=== PATIENT | female | born 1975 | race African-American/Black ===

== ENCOUNTER 2019-08-30 13:37 | Outpatient (CLI) | payer BC, SELFPAY ==
[2019-08-30 14:06] LABS: Hematocrit 35.7 % (37.0-47.0); Hemoglobin 10.6 g/dL (12.0-15.0)
== END 2019-08-30 13:38 | disposition home or self-care (01) ==
PROVIDERS: Anesthesiology; Visit Provider Obstetrics & Gynecology
DX: Z01.818 Encounter for other preprocedural examination (principal); N92.0 Excessive and frequent menstruation with regular cycle; D64.9 Anemia, unspecified
CPT/HCPCS: 36415; 85014; 85018; 86850; 86900; 86901

== ENCOUNTER 2019-09-01 14:29 | Outpatient (CLI) | payer BC, SELFPAY ==
--- NOTE | ~2019-09-01 | US_ITS ---
EXAMINATION: US pelvic complete w TV DATE: 09/01/2019 15:40 INDICATION: Uterine hypertrophy Comparison:No prior studies for comparison. TECHNIQUE: Multiple transabdominal and endovaginal sonographic images of the pelvis performed. FINDINGS: The uterus measures 11.9 x 6 x 6.1 cm. There are coarse calcifications in the uterus, likel y related to underlying fibroid changes. The endometrial complex measures 6 mm. The right ovary measures 3.9 x 1.6 x 1.7 cm and the left ovary measures 2.2 x 1.4 x 2.4 cm. There ar e small follicles in each ovary. There is no free fluid in the pelvis. There are no abnormal masses seen on either side. IMPRESSION: 1. Enlarged uterus containing coarse calcifications likely due to underlying fibroid changes. Reviewed, dictated and finalized at location A. [employer] [employer]DER IMPRESSION: 1. Enlarged uterus containing coarse calcifications likely due to underlying fi broid changes.
== END 2019-09-01 14:30 | disposition home or self-care (01) ==
PROVIDERS: Visit Provider Obstetrics & Gynecology
DX: N85.2 Hypertrophy of uterus (principal); R93.89 Abnormal findings on diagnostic imaging of other specified body structures
CPT/HCPCS: 76830; 76856

== ENCOUNTER 2019-09-07 01:16 | Day surgery (SDC) | payer BC, SELFPAY ==
[2019-08-25 14:59] VITALS: BMI 32.1
--- NOTE | 2019-09-06 13:44 | WPDANESEPPF ---
Anes - Initial Pre Proc Eval Procedure: Operation Date: 09/07/19 07:30 Proposed Procedures p Robotic Assisted Hysterectomy, Bilateral Salpingectomy - Jung Pa MD Date/Time: 09/06/19 13:44 Surgeon: Jung Pa MD Pre Op Diagnosis: Menorrhaghia, Anemia Patient Data Age: 44 Gender: F Height: 5 ft 1 in Weight: 77.11 kg Allergies Allergy/AdvReac Type Severity Reaction Status Date / Time peanut Allergy Unknown throat Verified 08/30/19 14:27 swelling, difficulty breathing Home Medications Medication Instructions Recorded Confirmed Type levothyroxine 150 mcg tablet 150 mcg PO DAILY 07/12/19 08/25/19 History ferrous sulfate [Slow Fe] 142 mg PO DAILY 08/25/19 08/25/19 History Patient hx anesthesia problems: none Family hx anesthesia problems: none PMFSH Social History Social History Smoking status: Light tobacco smoker Alcohol intake: current Anes - Eval Final PreProcedure Day of Procedure 09/06/19 13:44 Patient weight: normal Heart: regular rate and rhythm Lungs: clear to auscultation Airway: Mallampati scale class II Neurological: alert and oriented Last oral intake: >/= 8 hours ASA classification: II Emergent: no Anesthetic plan: proceed Anesthesia type and monitoring: general ETT and standard monitoring Informed Consent: The patient's anesthetic plan and its attendant risks and benefits were discussed with the patient/family/POA. Questions were solicited and answers provided to the satisfaction of the patient/family/POA.
[2019-09-07] VITALS (19 sets, daily range): BP systolic 101–128; BP diastolic 64–90; PULSE 80–109; RESP 12–18; TEMP 36.4–37.6; O2SAT 93–100
[2019-09-07] MEDS: LACTATED RINGERS 1,000 ML 30 ML IV CONT ×2 (06:45→11:11)
--- NOTE | 2019-09-07 07:49 | PM.IMHP ---
H&P: HPI History of Present Illness Chief complaint: Menorrhaghia, Anemia Narrative: Keisha Yap is a 44 year old female with long history of menorrhagia. She has a history of fibroids. She has had a prior uterine artery embolization. Prior to the embolization she was tried on many hormonal control which did not help her heavy bleeding. She had a subsequent delivery. Since then she has had heavy periods not to hormonal options in past. She has had a history of severe anemia which required a blood transfusion over a year ago. She has had iron injection and has been taking iron therapy. She does get moderate cramping for two days at onset of period. She has been offered progesterone IUD and offered endometrial ablation. She declines those and desires definitive treatment with hysterectomy. She has had a recent endometrial biopsy which was normal. Review of Systems Review of Systems: All systems reviewed & are unremarkable except as noted in HPI and below Constitutional: Constitutional: Reports no additional constitutional complaints Eyes: Eyes: Reports no additional eye complaints ENT: Reports Normal hearing present Cardiovascular: Cardiovascular: Denies chest pain and Denies dyspnea Respiratory: Respiratory: Reports no additional respiratory complaints, Reports cough, Denies dyspnea and Reports other Gastrointestinal: Gastrointestinal: Denies abdominal pain Genitourinary: Genitourinary: Reports no additional female genitourinary complaints, Reports as per HPI, Denies dyspareunia, Denies vaginal discharge, Denies vaginal dryness, Denies vaginal odor and Denies vaginal pruritus Integumentary/Breasts: Skin/Breast: Denies breast mass and Denies nipple discharge Neurologic: Reports Normal hearing present Psychiatric: Psychiatric: Reports no additional psychiatric complaints Endocrine: Endocrine: Reports no additional endocrine complaints Hematologic/Lymphatic: Hematologic/Lymphatic: Reports no additional hematologic/lymphatic complaints [facility] Past Medical History Medical History (Updated 09/07/19 @ 23:53 by Jung Pa MD) Anemia Anxiety Dysmenorrhea Intramural uterine fibroid Menorrhagia Menorrhagia Thyroid cancer Surgical History Surgical History H/O dilation and curettage H/O thyroidectomy History of History of tubal ligation Status post embolization of uterine artery Family History Family History Other Hypertension Social History Social History Smoking status: Light tobacco smoker Alcohol intake: current Meds Home Medications and Allergies Home Medications Medication Instructions Recorded Confirmed Type levothyroxine 150 mcg tablet 150 mcg PO DAILY 07/12/19 09/07/19 History ferrous sulfate [Slow Fe] 142 mg PO DAILY 08/25/19 09/07/19 History Allergies Allergy/AdvReac Type Severity Reaction Status Date / Time peanut Allergy Unknown throat Verified 09/07/19 07:07 swelling, difficulty breathing Vital Signs Vital Signs - 24 hr 09/07/19 06:27 Temperature 97.5 F L Pulse Rate 104 H Respiratory Rate 18 Blood Pressure 122/86 Pulse Oximetry 100 Exam Const: General: healthy appearing, no acute distress, alert and awake Nutritional Appearance: well nourished Orientation/consciousness: oriented to person, oriented to place, oriented to time and patient oriented x3 Limitations: no limitations HENMT: Head: normal to inspection Ears: hearing grossly normal bilaterally Mouth: Yes lip normal Eyes: General: appearance normal, both eyes and all related structures Neck: Neck: normal visual inspection, no lymphadenopathy and supple Thyroid: thyroid normal Lymphatic: no lymphadenopathy noted Chest: Chest palpation & inspection: normal inspection of the chest Breast/axilla
[2019-09-07] MEDS: ceFAZolin 2 GM/D5W 50 ML 2 GM/50 ML BAG IVPB (07:52)
--- NOTE | 2019-09-07 07:56 | WPDHPUPDATE1 ---
History and Physical Update Update Date/Time: 09/07/19 07:56 History and Physical has been reviewed, including an updated exam of the patient. There are NO changes in the patient's condition. Risks, benefits, and alternatives have been discussed and questions answered. Patient agrees to proceed with procedure.
--- NOTE | 2019-09-07 11:04 | PM.PROC ---
Procedure Note - Detailed Date of procedure: 09/08/19 Pre-op diagnosis: Menorrhaghia, Anemia Fibroid uterus Post-op diagnosis: same Procedure performed: 1.Robotic assisted laparoscopic hysterectomy with bilateral salpingectomy 2. Lysis of adhesions 3.Cystoscopy Description of procedure: After informed consent was obtained patient was taken to the operating room and general endotracheal anesthesia was administered. She was placed in low lithotomy position and prepped and draped in sterile fashion. Prior to being prepped and draped and exam under anesthesia was performed and no masses were palpated uterus palpated to be apporximately 8-10 week size. Attention was then turned to the vagina. A Harding catheter had been placed in bladder during prep. Weighted speculum was placed in the vagina. The anterior vaginal wall was retracted with a retractor. A single-tooth tenaculum was placed on the anterior lip of the cervix the uterus was sounded to 9 cm the cervix was dilated with adilator. The uterine manipulator was inserted and the bulb inflated a size 8 uterine manipulator was used. A 3.5 cm colp cup was secured in the vagina. Prior to securing the cup the single-tooth tenaculum was removed from the cervix. Attention was then turned to the abdomen. With sterile gloves a horizontal incision was made 2cm above the umbilicus with the scalpel. A Veress needle was inserted into the abdomen confirmation into the abdomen was obtained with normal free flow of fluid through the veress needle and normal peritoneal pressures. A pneumoperitoneum of 15 mm per mercury was obtained and a size 10 mm trocar was inserted under laparoscopic visualization. Attention was then turned to the left side of the abdomen and a 8mm robotic port was inserted under laparoscopic visualization. Attention was then turned to the right side parallel to this and a 8mm robotic port was inserted under laparoscopic visualization. Superior and medial to this a 10mm volunteer assistant port was inserted under laparoscopic visualization. The patient was placed in Trendelenburg to allow the intestinal organs out of the pelvis. The robotic arms were then attached to the ports. Attention was then turned to the surgery console. The band of omentum was lysed from the lower anterior abdomen for full visualization of the pelvis. Attention was turned to the right round ligament which was cauterized and cut. The anterior leaf of the broad ligament was further dissected anteriorly to the vesicouterine peritoneum which was did have some scarring and was dissected on the right side from the lower uterine segment. Attention was then attention was turned to the right fallopian tube which was cauterized from the upper broad ligament and distal ovary. Attention was then turned to the right ovarian ligament which was then cauterized and cut. The posterior broad ligament was further incised. The ascending uterine vessels were cauterized. Attention was then turned to the left round ligament which was cauterized and incised. The left arm of the robotic was not functioning properly after several repositions. Therefore a superior incision was made an an 8 mm port was inserted and the The anterior leaf of the broad ligament was further incised to the vesicouterine peritoneum. The bladder was further dissected from the rest of the lower uterine segment. The left fallopian tube was cauterized from the distal ovary and the broad [id number] arm was applied to this port. The arm was then functioning well. The left fallopian tube was cauterized from the round ligament. The left round ligament was cauterized and the anterior leaf of the broad ligament was further dissected anteriorly. There was minimal scarring of the vesiuterine peritoneum on the left to the middle of lower uterine segment. The vesicotuerine peritoneum was dissected from the lower uterine segment and on the right side with careful dissection of the scar tissue. The left ovarian ligament wa
--- NOTE | 2019-09-07 12:46 | PC.NURSE ---
PT arrived on unit via bed accompanied by significant other and daughter and taken to room 289. PT oriented to room and surrounding area. PT introductions made and plan of care discussed per post op property master surgery, pain management, daily care activities. PT verbalized understanding of such care.
[2019-09-07] MEDS: SIMETHICONE 80 MG TAB.CHEW PO (17:12)
[2019-09-07] MEDS: KETOROLAC 30 MG/ML VIAL (*BKC) IM (17:12)
[2019-09-07] MEDS: KETOROLAC 30 MG/ML VIAL (*BKC) IV PUSH (22:58)
[2019-09-08] MEDS: SIMETHICONE 80 MG TAB.CHEW PO ×3 (01:35→13:02)
[2019-09-08 05:15] VITALS: BP 114/79; PULSE 86; RESP 18; TEMP 36.7
[2019-09-08] MEDS: KETOROLAC 30 MG/ML VIAL (*BKC) IV PUSH (05:27)
[2019-09-08 05:45] LABS: Hematocrit 28.2 % (37.0-47.0); Hemoglobin 8.6 g/dL (12.0-15.0)
--- NOTE | 2019-09-08 06:50 | PC.NURSE ---
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
[2019-09-08 07:35] VITALS: BP 115/71; PULSE 80; RESP 16; TEMP 37.3; O2SAT 97
[2019-09-08 11:00] VITALS: TEMP 37.1
--- NOTE | 2019-09-08 11:54 | PM.GYNPNOP ---
CONNIE CLEANER - A/P Postoperative Procedures: Procedures Operation Date: 09/07/19 07:30 Actual Procedures Side Surgeon p Robotic Assisted Hysterectomy, Bilateral Salpingectomy, cystoscopy Bilateral Jung Pa MD Postoperative day: 1 Postoperative status: doing well Postoperative plan: discharge Time Spent With Patient Time: Total time spent is greater than 50% in coordination of care (as documented) at patient's floor/unit and/or counseling patient: Time with patient: less than 15 minutes CONNIE CLEANER- PN:Subj Post-Op Subjective Date/time seen: 09/08/19 11:54 Interval history: She has set up in a chair. She has ambulated in [place] without problems. She reports positive flatus. She has had a good pain control with the IV and oral pain medicines. Has urinated without problems. M Subjective: pain is well controlled and patient is tolerating oral intake Review of Systems Review of Systems: All systems reviewed & are unremarkable except as noted in HPI and below Cardiovascular: Cardiovascular: Reports no additional cardiovascular complaints Respiratory: Respiratory: Reports no additional respiratory complaints Gastrointestinal: Gastrointestinal: Reports belching, Denies nausea and Denies vomiting Genitourinary: Genitourinary: Reports no additional female genitourinary complaints Musculoskeletal: Musculoskeletal: Reports no additional musculoskeletal complaints Exam Const: General: comfortable and no acute distress Orientation/consciousness: oriented to person, oriented to place and oriented to time Resp: Auscultation: clear to auscultation bilaterally Cardio: Rate: regular rate Rhythm: regular rhythm GI: GI Palp: Yes Soft to palpation Auscultation: normal bowel sounds Other: appropriate tenderness at incision sites, no guarding, incisions healing well Neuro: General: oriented to person, oriented to place and oriented to time Extrem: General: no calf tenderness Psych: Mental Status: mental status grossly normal CONNIE CLEANER - PN: Obj Data Vital Signs Vital Signs: Vital Signs - 24 hr 09/07/19 12:00 09/07/19 12:15 09/07/19 12:30 Temperature Pulse Rate 81 90 90 Respiratory Rate 13 14 12 Blood Pressure 111/74 109/78 109/67 Pulse Oximetry 95 93 94 09/07/19 13:00 09/07/19 13:20 09/07/19 13:30 Temperature 98.5 F Pulse Rate 96 97 Respiratory Rate 18 16 16 Blood Pressure 108/75 112/71 Pulse Oximetry 97 95 97 09/07/19 13:45 09/07/19 14:00 09/07/19 14:30 Temperature Pulse Rate 105 H 88 109 H Respiratory Rate 16 16 16 Blood Pressure 107/72 108/66 102/68 Pulse Oximetry 97 98 98 09/07/19 15:00 09/07/19 16:00 09/07/19 17:00 Temperature 99.7 F H Pulse Rate 98 96 94 Respiratory Rate 16 18 18 Blood Pressure 109/68 101/64 107/68 Pulse Oximetry 99 99 100 09/07/19 20:08 09/07/19 22:55 09/08/19 05:15 Temperature 98.9 F 98.5 F 98.1 F Pulse Rate 80 85 86 Respiratory Rate 17 18 18 Blood Pressure 113/68 114/64 114/79 Pulse Oximetry 09/08/19 07:35 09/08/19 11:00 Temperature 99.2 F 98.7 F Pulse Rate 80 Respiratory Rate 16 Blood Pressure 115/71 Pulse Oximetry 97 Intake/Output Intake/Output: Intake & Output 09/05/19 09/06/19 09/07/19 09/08/19 23:59 23:59 23:59 23:59 Intake Total 2550 2100 Output Total 1380 2100 Balance 1170 0 Meds/Results Medications: Active Medications Generic Name Dose Route Start Last Admin Trade Name Freq PRN Reason Stop Dose Admin Hydrocodone Bitart/Acetaminophen 1 tab 09/07/19 10:55 [place] 5-325 Mg PO Q3H PRN Pain Rated 5 or Less Hydrocodone Bitart/Acetaminophen 1 tab 09/07/19 10:55 09/07/19 13:28 [place] 10-325 Mg PO 1 tab Q3H PRN Administration Pain Rated 6 or Greater Ketorolac Tromethamine 10 mg 09/08/19 11:49 Toradol Tab PO Q6H PRN Pain Rated 4-6 Naloxone HCl 0.1 mg 09/07/19 10:55 Narcan IV PUSH Q2M PRN Respiratory rate less than 10 Ondansetron HCl 4 mg 09/07/19 10
--- NOTE | 2019-09-08 11:59 | P.DS_ITS ---
DS: Diagnosis Admitting Diagnosis Admitting Diagnosis: Excessive and frequent menstruation with regular cycle DS: Summary Time Spent with Patient Time attestation: Total time spent providing and/or coordinating discharge services: Exam Const: General: comfortable and no acute distress Orientat ion/consciousness: oriented to person, oriented to place and oriented to time Resp: Auscultation: clear to auscultation bilaterally Cardio: Rate: regular rate Rhythm: regular rhythm GI: GI Palp: Yes Soft to palpation Auscultation: normal bowel sounds Other: incisions healing well Neuro: General: oriented to person, oriented to place and oriented to time Extrem: General: no calf tenderness Psych: Mental Status: mental status grossly normal DS: Data Data Completed and Pending Completed studies during hospitalization: Pending at discharge 09/07/19 10:21 Surgical [PTH] Routine Labs on day of discharge: Labs from last 24 hours 09/08/19 05:19 Hgb 8.6 L Hct 28.2 L Discharge Plan Discharge Patient Disposition: Home, Self-Care Discharge Instructions: No driving until after her follow up visit. No lifting or bending. Call for temperature> 1004, vaginal bleeding, persistent nausea or vomiting. Leg pain, redness or swelling. Take Miralax daily until having regular bowel movements. Follow-up/Referrals: Jung Pa MD [Physician] - 1 Week Discharge Medications: New hydrocodone-acetaminophen 5-325 mg Tablet 1 tab PO Q3H PRN (Reason: Pain Rated 5 Or Less) Qty: 20 RF: 0 ketorolac 10 mg Tablet 10 mg PO Q6H PRN (Reason: Pain Rated 4-6) Qty: 15 RF: 0 Continued levothyroxine 150 mcg tablet 150 mcg PO DAILY RF: 0 Slow Fe 142 mg (45 mg iron) Tablet Extended Release 142 mg PO DAILY RF: 0 Primary Care Provider: UNKNOWN,DOCTOR Attending physician on admission: Jung Pa
--- NOTE | 2019-09-08 13:00 | PC.NURSE ---
PT received discharge instructions per protocol and verbalized understanding of such instructions. PT was fitted for abdominal binder.
[2019-09-08] MEDS: KETOROLAC 10 MG TABLET PO (13:02)
--- NOTE | 2019-09-08 13:26 | PC.NURSE ---
PT discharged to home via wheelchair accompanied by significant other and taken to waiting car. Follow up appts confirmed
== END 2019-09-08 13:26 | disposition home or self-care (01) ==
LOC: ANHSURGERY 06:08 → ANHOB2 12:03
PROVIDERS: Visit Provider Obstetrics & Gynecology
PROC: (CPT 58552; principal; 2019-09-07 07:30)
DX: N92.0 Excessive and frequent menstruation with regular cycle (principal); D64.9 Anemia, unspecified; N73.6 Female pelvic peritoneal adhesions (postinfective); N72 Inflammatory disease of cervix uteri; N84.1 Polyp of cervix uteri; D25.1 Intramural leiomyoma of uterus; N83.8 Other noninflammatory disorders of ovary, fallopian tube and broad ligament; N94.6 Dysmenorrhea, unspecified; E89.0 Postprocedural hypothyroidism; Z85.850 Personal history of malignant neoplasm of thyroid; F17.210 Nicotine dependence, cigarettes, uncomplicated
CPT/HCPCS: 58552; S2900; 36415; 85014; 85018; 88307; 99199; A9270; J0131; J0690; J1100; J1170; J1885; J2250; J2405; J2704; J2710; J3010; J7120

== ENCOUNTER 2020-04-16 09:44 | Outpatient (CLI) | payer BC, SELFPAY ==
--- NOTE | ~2020-04-16 | CT_ITS ---
EXAMINATION: CT chest w con DATE: 04/16/2020 10:07 INDICATION: Thyroid cancer. TECHNIQUE: Computed tomography (CT) of the chest was performed without intravenous contrast. The dose -length product was 211.59 mGy-cm. Automated exposure control and iterative reconstruction technique were employed. COMPARISON: Chest x-ray dated 03/26/2016 FINDINGS: No thoracic lymphadenopathy. No significant pleural or pericardial effusion. Heart size nor mal. There are multiple bilateral pulmonary nodules involving all lobes of the lung measuring 6 mm or less, compatible with metastases. No endobronchial lesions. No osteolytic or osteoblastic lesions. IMPRESSION: 1. Innumerable bilateral pulmonary nodules measuring 6 mm or less, compatible with metastatic disease , presumably from known thyroid cancer. Reviewed, dictated and finalized at location B. IMPRESSION: 1. Innumerable bilateral pulmonary nodules measuring 6 mm or less, compatible w ith metastatic disease, presumably from known thyroid cancer.
== END 2020-04-16 09:45 | disposition home or self-care (01) ==
LOC: ANHIMG 09:45
PROVIDERS: PCP Nurse Practitioner; Visit Provider Nurse Practitioner
DX: R91.1 Solitary pulmonary nodule (principal); R91.8 Other nonspecific abnormal finding of lung field
CPT/HCPCS: 71260; Q9967

== ENCOUNTER 2020-06-13 09:42 | Outpatient (CLI) | payer BC, SELFPAY ==
--- NOTE | 2020-06-13 11:00 | NEURO_ITS ---
Impression: # Complains of numbness of hands. # Bilateral mild Carpal Tunnel Syndrome. # No ulnar neuropathy. # Normal needle/EMG exam. Nerve Conduction Studies Anti Sensory Summary Table Stim Site NR Peak (ms) P-T Amp (?V) Site1 Site2 Delta-P (ms) Dist (cm) Luis (m/s) Left Median Anti Sensory (2-3nd Digit) Wrist 3.5 44.2 Wrist 2-3nd Digit 3.5 14.0 40 Wrist 3.4 64.3 Wrist 2-3nd Digit 3.5 14.0 40 Right Median Anti Sensory (2-3nd Digit) Wrist 3.1 42.9 Wrist 2-3nd Digit 3.1 14.0 45 Wrist 3.2 43.4 Wrist 2-3nd Digit 3.1 14.0 45 Left Radial Anti Sensory (Base 1st Digit) Wrist 2.0 44.2 Wrist Base 1st Digit 2.0 0.0 Right Radial Anti Sensory (Base 1st Digit) Wrist 2.2 20.8 Wrist Base 1st Digit 2.2 0.0 Left Ulnar Anti Sensory (5th Digit) Wrist 2.3 34.3 Wrist 5th Digit 2.3 14.0 61 Right Ulnar Anti Sensory (5th Digit) Wrist 2.1 47.1 Wrist 5th Digit 2.1 14.0 67 Motor Summary Table Stim Site NR Onset (ms) O-P Amp (mV) Site1 Site2 Delta-0 (ms) Dist (cm) Luis (m/s) Left Median Motor (Abd Poll Brev) Wrist 3.5 2.4 Elbow Wrist 4.4 26.0 59 Elbow 7.9 2.1 Right Median Motor (Abd Poll Brev) Wrist 3.3 2.1 Elbow Wrist 4.0 25.0 63 Elbow 7.3 2.2 Left Ulnar Motor (Abd Dig Minimi) Wrist 2.1 4.8 A Elbow Wrist 4.1 26.0 63 A Elbow 6.2 4.7 Right Ulnar Motor (Abd Dig Minimi) Wrist 2.1 4.7 A Elbow Wrist 4.4 26.0 59 A Elbow 6.5 3.9 F Wave Studies NR F-Lat (ms) L-R F-Lat (ms) Left Median (Mrkrs) (Abd Poll Brev) 24.68 0.94 Right Median (Mrkrs) (Abd Poll Brev) 25.61 0.94 Left Ulnar (Mrkrs) (Abd Dig Min) 25.00 0.00 Right Ulnar (Mrkrs) (Abd Dig Min) 25.00 0.00 EMG Side Muscle Nerve Root Ins Act Fibs Amp Dur Recrt Comment Right 1stDorInt Ulnar C8-T1 Nml Nml Nml Nml Nml Right Ext Indicis Radial (Post Int) C7-8 Nml Nml Nml Nml Nml Right Ext Digitorum Radial (Post Int) C7-8 Nml Nml Nml Nml Nml Right BrachioRad Radial C5-6 Nml Nml Nml Nml Nml Right PronatorTeres Median C6-7 Nml Nml Nml Nml Nml Right Abd Poll Brev Median C8-T1 Nml Nml Nml Nml Nml Left 1stDorInt Ulnar C8-T1 Nml Nml Nml Nml Nml Left Ext Indicis Radial (Post Int) C7-8 Nml Nml Nml Nml Nml Left Ext Digitorum Radial (Post Int) C7-8 Nml Nml Nml Nml Nml Left BrachioRad Radial C5-6 Nml Nml Nml Nml Nml Left PronatorTeres Median C6-7 Nml Nml Nml Nml Nml Left Abd Poll Brev Median C8-T1 Nml Nml Nml Nml Nml MTDD
== END 2020-06-13 09:43 | disposition home or self-care (01) ==
LOC: ANHNEURO 09:43
PROVIDERS: PCP Nurse Practitioner; Visit Provider Nurse Practitioner
DX: R20.2 Paresthesia of skin (principal); R20.0 Anesthesia of skin
CPT/HCPCS: 95886; 95911

== ENCOUNTER 2020-06-20 08:31 | Outpatient (CLI) | payer BC, SELFPAY ==
[2020-06-20 09:09] LABS: Basophils Absolute Auto 0.1 K/mm3 (0.0-0.1); Eosinophils Absolute Auto 0.5 K/mm3 (0-0.3); Eosinophils Percent Auto 6.6 % (0-4.4); Hematocrit 42.2 % (37.0-47.0); Hemoglobin 13.5 g/dL (12.0-15.0); Immature Granulocyte Absolute 0.02 K/mm3 (0.00-0.031); Immature Granulocyte Percent A 0.3 % (0-0.5); Lymphocytes Absolute Auto 2.13 K/mm3 (0.9-3.2); Lymphocytes Percent Auto 27.4 % (18.3-44.2); Mean Corpuscular Hemoglobin 28.2 pg (26-34); Mean Corpuscular Volume 88.1 fl (80-100); Mean Platelet Volume 11.6 fl (7.4-10.4); Monocytes Absolute Auto 0.6 K/mm3 (0.1-0.6); Monocytes Percent Auto 7.1 % (2.6-8.5); Neutrophils Absolute Auto 4.5 K/mm3 (1.3-6.7); Neutrophils Percent Auto 57.6 % (45.5-73.1); Platelet Count Result 229 k/mm3 (150-375); Red Blood Count 4.79 M/mm3 (4.2-5.4); Red Cell Distribution Width 16.4 % (11.5-14.5); White Blood Count 7.8 K/mm3 (4.5-10.0)
[2020-06-20 17:55] LABS: Alanine Aminotransferase 18 U/L (4-35); Albumin Level 4.4 g/dL (3.5-5.1); Alkaline Phosphatase 51 U/L (38-126); Anion Gap 11 mmol/L (8-16); Aspartate Amino Transferase 28 U/L (14-36); Bilirubin,Total 0.3 mg/dL (0.2-1.3); Blood Urea Nitrogen 16 mg/dL (7-17); Calcium 8.9 mg/dL (8.4-10.2); Carbon Dioxide 24 mmol/L (22-30); Chloride 107 mmol/L (98-107); Estimated Glomerular Filt Rate > 60; Glucose 89 mg/dL (65-105); Potassium 4.3 mmol/L (3.4-5.0); Sodium 142 mmol/L (137-145)
[2020-07-05 04:22] LABS: Thyroglobulin 20.6 ng/mL (2.8-40.9); Thyroglobulin Antibodies <1 IU/mL (<=1)
== END 2020-06-20 08:32 | disposition home or self-care (01) ==
LOC: ANHLAB 08:34
PROVIDERS: PCP Family Medicine; Visit Provider Internal Medicine Hematology & Oncology
DX: C73 Malignant neoplasm of thyroid gland (principal)
CPT/HCPCS: 36415; 80053; 84432; 84443; 85025; 86800

== ENCOUNTER 2021-07-15 09:58 | Outpatient (CLI) | payer BC, SELFPAY ==
--- NOTE | ~2021-07-15 | NM_ITS ---
EXAMINATION: NM stress w perf spect multi DATE: 07/15/2021 12:19 INDICATION: Cardiac arrhythmia. TECHNIQUE: Rest images were obtained following intravenous administration of 10.8 mCi Tc99m tetrofosm in (Myoview). The patient performed an exercise activity. At peak exercise, 33 mCi Tc99m tetrofosmin (Myoview) was administered intravenously, and stress images were obtained. Data was reconstructed int o short axis and horizontal and vertical long axis SPECT images. Gated SPECT images were also obtaine d. COMPARISON: Chest CT 04/16/2020 FINDINGS: There is no definite reversible or fixed perfusion abnormality to suggest ischemia or infar ction. There is no segmental wall motion abnormality. Left ventricular ejection fraction measures 6 5%. IMPRESSION: 1. No definite ischemia or infarct. 2. Normal left ventricular ejection fraction measuring 65%. Reviewed, dictated and finalized at location A. TIME BABYSITTER
--- NOTE | 2021-07-15 11:20 | EST_ITS ---
Patient Info Name: Keisha Yap Age: 46 years : 1975 Gender: Female Ht: 60 in Wt: 191 lbs BSA: 1.96 m2 HR: 79 bpm BP: 131 / 97 mmHg Heart Rhythm: Sinus Rhythm Exam Date: 07/15/2021 11:25 AM Exam Location: [facility], [place] Stress Patient Status: Outpatient Admit Date: 07/15/2021 Staff Ordering Physician: Selina Hudson NP Attending Provider: Ian Davidson MD Exercise Technologist: Bharati Gray CT Exercise Physician: Brayan Hdz DO Exam Type: CA stress test treadmill with nuclear medicine. Study Info Indications R00.2 - Palpitations A nuclear stress test was performed. Summary 1. 1. Negative Akbar exercise stress test for ischemic ST changes by ECG criteria. 2. 2. Reduced functional capacity, achieving 7 METs of workload. 3. 3. Appropriate HR response to exercise. 4. 4. Appropriate HR recovery at 1 minute post exercise. 5. 5. Nuclear scan to follow and will be reported separately. Please correlate with it. 6. 6. Patient informed of the above results. Protocol: [facility] Stress ECG Details Stage: REST Duration (min): 0 min : 55 sec Speed (mph): 0.0 Grade (%): 0 HR (bpm): 79 SBP (mmHg): 131 DBP (mmHg): 97 METS: --- Stage: REST Duration (min): 4 min : 55 sec Speed (mph): 0.0 Grade (%): 0 HR (bpm): 82 SBP (mmHg): 131 DBP (mmHg): 97 METS: --- Stage: STAGE 1 Duration (min): 1 min : 0 sec Speed (mph): 1.7 Grade (%): 10 HR (bpm): 119 SBP (mmHg): 131 DBP (mmHg): 97 METS: --- Stage: STAGE 1 Duration (min): 2 min : 0 sec Speed (mph): 1.7 Grade (%): 10 HR (bpm): 128 SBP (mmHg): 131 DBP (mmHg): 97 METS: --- Stage: STAGE 1 Duration (min): 3 min : 0 sec Speed (mph): 1.7 Grade (%): 10 HR (bpm): 132 SBP (mmHg): 153 DBP (mmHg): 98 METS: --- Stage: STAGE 2 Duration (min): 1 min : 0 sec Speed (mph): 2.5 Grade (%): 12 HR (bpm): 147 SBP (mmHg): 153 DBP (mmHg): 98 METS: --- Stage: STAGE 2 Duration (min): 2 min : 0 sec Speed (mph): 2.5 Grade (%): 12 HR (bpm): 158 SBP (mmHg): 192 DBP (mmHg): 75 METS: --- Stage: STAGE 2 Duration (min): 3 min : 0 sec Speed (mph): 2.5 Grade (%): 12 HR (bpm): 162 SBP (mmHg): 192 DBP (mmHg): 75 METS: --- Stage: STAGE 3 Duration (min): 0 min : 1 sec Speed (mph): 3.4 Grade (%): 14 HR (bpm): 162 SBP (mmHg): 192 DBP (mmHg): 75 METS: --- Stage: RECOVERY Duration (min): 0 min : 58 sec Speed (mph): 0.0 Grade (%): 0 HR (bpm): 128 SBP (mmHg): 156 DBP (mmHg): 97 METS: --- Stage: RECOVERY Duration (min): 1 min : 1 sec Speed (mph): 0.0 Grade (%): 0 HR (bpm): 129 SBP (mmHg): 156 DBP (mmHg): 97 METS: --- Rest HR: 82 bpm Peak HR: 162 bpm Rest Sys BP: 131 mmHg Peak Sys BP: 192 mmHg Max Pred HR: 175 bpm % Max Pred HR: 93 % Target HR: 149 bpm Max
== END 2021-07-15 09:59 | disposition home or self-care (01) ==
LOC: ANHIMG 10:04
PROVIDERS: PCP Family Medicine; Visit Provider Family Medicine
DX: R00.2 Palpitations (principal); I49.9 Cardiac arrhythmia, unspecified
CPT/HCPCS: 78452; 93017; A9502

== ENCOUNTER 2021-10-01 09:42 | Emergency (ER) | payer BC, SELFPAY ==
--- NOTE | ~2021-10-01 | CT_ITS ---
EXAMINATION: CTA chest PE protocol DATE: 10/01/2021 12:36 INDICATION: Chest tightness. Cough and wheezing. TECHNIQUE: Computed tomography angiography (CTA) of the chest was performed with 100 mL Omnipaque-350 intravenous contrast timed to evaluate the pulmonary arteries. Coronal maximum intensity projection 3D-reconstructions were created by the technologist. Automated exposure control and iterative reconst ruction technique were employed. The dose-length product was 397.69 mGy-cm. COMPARISON: Chest CT 04/16/2020, CT 01/23/2017. FINDINGS: There are greater than 40 scattered pulmonary nodules in the lungs in a random distribution measuring up to 6 mm, stable from 04/16/2020. No pleural effusion. There are changes of thyroidectomy . The heart size is normal. No pericardial effusion. There is a diffuse hepatic steatosis. There is n o pulmonary embolus. There is moderate thoracic spondylosis. IMPRESSION: 1. No pulmonary embolus. 2. Pulmonary nodules measuring up to 6 mm, stable from 04/16/2020 and worsened from 01/23/2017. These f indings are suspicious for metastatic thyroid cancer. Reviewed, dictated and finalized at location A. [facility] IMPRESSION: 1. No pulmonary embolus. 2. Pulmonary nodules measuring up to 6 mm, stable from 04/16/2020 and worsened f rom 01/23/2017. These findings are suspicious for metastatic thyroid cancer.
--- NOTE | ~2021-10-01 | XR_ITS ---
EXAMINATION: XR chest 2V DATE: 10/01/2021 10:17 INDICATION: Chest pain. Chest pressure. TECHNIQUE: Frontal and lateral views of the chest were obtained. COMPARISON: Chest 2 views 03/26/2016, chest CT 04/16/2020 FINDINGS: There is scattered small nodules in the lungs. No pleural effusion or pneumothorax. The hea rt size is normal. There is a prominent left paracardial fat pad. Surgical clips in the right upper q uadrant are likely from cholecystectomy. IMPRESSION: 1. Scattered small nodules in the lungs again seen suspicious for metastatic thyroid cancer. Reviewed, dictated and finalized at location A. [facility] IMPRESSION: 1. Scattered small nodules in the lungs again seen suspicious for metastatic th yroid cancer.
--- NOTE | 2021-10-01 09:49 | ECG_ITS ---
Measurements Intervals [place] Rate: 80 P: 38 [place]: 145 QRS: 13 QRSD: 76 T: 30 QT: 388 QTc: 448 Interpretive Statements SINUS RHYTHM NO PREVIOUS ECG AVAILABLE FOR COMPARISON Electronically Signed On 10-01-2021 12:28:02 MACHINE STUFFER by Homar Shore M.D.
[2021-10-01 09:55] VITALS: BP 124/87; PULSE 87; RESP 16; TEMP 36.3; O2SAT 100
[2021-10-01 10:03] LABS: Basophils Absolute Auto 0.1 K/mm3 (0.0-0.1); Basophils Percent Auto 0.6 % (0.2-1.2); Eosinophils Absolute Auto 0.4 K/mm3 (0-0.3); Eosinophils Percent Auto 5.5 % (0-4.4); Hematocrit 46.3 % (37.0-47.0); Hemoglobin 15.2 g/dL (12.0-15.0); Immature Granulocyte Absolute 0.03 K/mm3 (0.00-0.031); Immature Granulocyte Percent A 0.4 % (0-0.5); Lymphocytes Absolute Auto 1.85 K/mm3 (0.9-3.2); Lymphocytes Percent Auto 23.5 % (18.3-44.2); Mean Corpuscular HGB Conc 32.8 g/dl (32-36); Mean Corpuscular Hemoglobin 31.8 pg (26-34); Mean Corpuscular Volume 96.9 fl (80-100); Mean Platelet Volume 10.8 fl (7.4-10.4); Monocytes Absolute Auto 0.7 K/mm3 (0.1-0.6); Monocytes Percent Auto 8.5 % (2.6-8.5); Neutrophils Absolute Auto 4.8 K/mm3 (1.3-6.7); Neutrophils Percent Auto 61.5 % (45.5-73.1); Platelet Count Result 212 k/mm3 (150-375); Red Blood Count 4.78 M/mm3 (4.2-5.4); Red Cell Distribution Width 13.4 % (11.5-14.5); White Blood Count 7.9 K/mm3 (4.5-10.0)
[2021-10-01 10:13] LABS: Prothrombin Time 12.5 Seconds (11.1-14.7)
[2021-10-01 10:14] LABS: Alanine Aminotransferase 29 U/L (4-35); Albumin Level 4.7 g/dL (3.5-5.1); Alkaline Phosphatase 60 U/L (38-126); Anion Gap 10 mmol/L (8-16); Aspartate Amino Transferase 38 U/L (14-36); Bilirubin,Total 0.9 mg/dL (0.2-1.3); Blood Urea Nitrogen 13 mg/dL (7-17); Calcium 8.7 mg/dL (8.4-10.2); Carbon Dioxide 23 mmol/L (22-30); Chloride 108 mmol/L (98-107); Estimated CRCL calculation 77 ml/min; Estimated Glomerular Filt Rate > 60; Glucose 125 mg/dL (65-110); Lipase 115 U/L (23-300); Partial Thromboplastin Time 28.4 SECONDS (22.3-36.8); Potassium 3.9 mmol/L (3.4-5.0); Sodium 141 mmol/L (137-145)
[2021-10-01 10:25] LABS: Troponin I < 0.012 ng/mL (0.000-0.034)
--- NOTE | 2021-10-01 11:52 | ED.CHESTPAIN ---
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 Patient reports that yesterday she felt unwell, had an episode of nausea, vomiting with some chest discomfort. Patient reported chest discomfort at that point in both lungs. Patient states that she did well overnight, the vomiting, diarrhea, resolved, the patient states today the left-sided chest pain has. Pain in the left chest is moderate in nature, rated 5/10 in severity. Associated with wheezing without significant cough. Patient denies hemoptysis. No pleuritic pain. No abdominal pain. Patient has been able to tolerate oral intake today. Denies fever, chills, rhinorrhea. Patient states she felt so unwell today that she has not smoked. She reports chronic left lower extremity swelling. Denies history of coagulopathy or blood clot. Related Data Allergies Allergy/AdvReac Type Severity Reaction Status Date / Time peanut Allergy Unknown throat Verified 05/22/21 09:25 swelling, difficulty breathing Review of Systems Review of Systems: CONSTITUTIONAL: Denies fever, chills, or sweats. EYES: Denies visual changes, redness, or discharge. ENT: Denies rhinorrhea, congestion, sore throat, or otalgia. CARDIOVASCULAR: Reports left-sided chest pain, denies palpitations, reports chronic left lower extremity edema RESPIRATORY: Denies cough or dyspnea. GASTROINTESTINAL: Denies abdominal pain, reports resolution of nausea, vomiting, diarrhea GENITOURINARY: Denies dysuria or hematuria. SKIN: Denies rash or itching. MUSCULOSKELETAL: Denies back pain, joint pain, or myalgia. NEUROLOGIC: Denies headache, numbness, or weakness. [facility] Past Medical History Medical History x1 Anemia Anxiety Hypothyroidism Intramural uterine fibroid Missed x4 Pulmonary nodules Pulmonary nodules/lesions, multiple Thyroid cancer (~2018) thyroidectomy Thyroid cancer Surgical History Surgical History H/O dilation and curettage H/O thyroidectomy 09/2019 History of x1 History of robot-assisted laparoscopic hysterectomy History of tubal ligation Status post embolization of uterine artery Family History Family History Other Hypertension Social History Social History Years smoked: 24 Smoking status: Current some day smoker Tobacco type: cigarettes Alcohol intake: current Substance use: unknown Exam Narrative: GENERAL: Awake, alert, conversant HEAD: Normocephalic, atraumatic. EYES: PERRLA and EOMI. ENT: Nares clear, no rhinorrhea or epistaxis. Mucous membranes moist. NECK: Supple. CHEST: No respiratory distress, breathing even and non labored HEART: Regular rate, sinus rhythm ABDOMEN:Non distended, non tender EXTREMITIES: Normal range of motion. No edema. SKIN: Warm, dry, no rash. NEURO:No focal deficits. Alert and oriented x3 Course Vital Signs Vital signs: Vital Signs Temperature 36.3 C L 10/01/21 09:55 Pulse Rate 87 10/01/21 09:55 Respiratory Rate 16 10/01/21 09:55 Blood Pressure 124/87 10/01/21 09:55 Pulse Oximetry 100 10/01/21 09:55 Temperature 36.3 C L 10/01/21 09:55 Pulse Rate 87 10/01/21 09:55 Respiratory Rate 16 10/01/21 09:55 Blood Pressure 124/87 10/01/21 09:55 Pulse Oximetry 100 10/01/21 09:55 MDM - Chest Pain MDM Narrative Medical decision making narrative: Patient presenting for
[2021-10-01] MEDS: ASPIRIN 81 MG CHEWABLE TABLET 324 MG PO (11:57)
[2021-10-01 13:17] LABS: Troponin I < 0.012 ng/mL (0.000-0.034)
== END 2021-10-01 13:45 | disposition home or self-care (01) ==
PROVIDERS: Emergency Provider Emergency Medicine; PCP Family Medicine
DX: R07.89 Other chest pain (principal); C34.90 Malignant neoplasm of unspecified part of unspecified bronchus or lung; C78.1 Secondary malignant neoplasm of mediastinum; Z85.850 Personal history of malignant neoplasm of thyroid; E89.0 Postprocedural hypothyroidism; F17.210 Nicotine dependence, cigarettes, uncomplicated; Z86.2 Personal history of diseases of the blood and blood-forming organs and certain disorders involving the immune mechanism
CPT/HCPCS: 36415; 71046; 71275; 80053; 83690; 84484; 85025; 85610; 85730; 93005; 99284; A9270; Q9967

== ENCOUNTER 2022-02-03 01:59 | Emergency (ER) | payer BC, SELFPAY ==
[2022-02-03 02:02] VITALS: BP 120/84; PULSE 102; RESP 16; TEMP 36.2; O2SAT 96
[2022-02-03 03:44] VITALS: BP 119/92; PULSE 116; RESP 18; O2SAT 97
[2022-02-03 03:58] VITALS: PULSE 102; RESP 16; O2SAT 96
--- NOTE | 2022-02-03 04:02 | ED.GENADULT ---
HPI - General Adult General Chief complaint: Nausea/Vomiting/Diarrhea Stated complaint: nausea/vomitting Time Seen by Provider: 02/03/22 03:46 History of Present Illness HPI narrative: 46-year-old female with history of hypothyroidism presenting to the emergency department for evaluation of cute onset of nausea vomiting diarrhea. Patient states she had onset symptoms at approximately 9:00 last night. Patient does report associated nausea vomiting and diarrhea. Patient states she had extensive emesis and has also had subsequent dry heaves. Patient denies any blood in her stool or blood in her emesis. Patient states she does have some generalized abdominal discomfort from the emesis. Patient does have a prior history of , tubal ligation, hysterectomy and cholecystectomy. Related Data Allergies Allergy/AdvReac Type Severity Reaction Status Date / Time peanut Allergy Unknown throat Verified 02/03/22 03:48 swelling, difficulty breathing Review of Systems Review of Systems: CONSTITUTIONAL: Denies fever, chills, or sweats. EYES: Denies visual changes, redness, or discharge. ENT: Denies rhinorrhea, congestion, sore throat, or otalgia. CARDIOVASCULAR: Denies chest pain, palpitations, or edema. RESPIRATORY: Denies cough or dyspnea. GASTROINTESTINAL: See HPI GENITOURINARY: Denies dysuria or hematuria. SKIN: Denies rash or itching. MUSCULOSKELETAL: Denies back pain, joint pain, or myalgia. NEUROLOGIC: Denies headache, numbness, or weakness. [facility] Past Medical History Medical History x1 Anemia Anxiety Hypothyroidism Intramural uterine fibroid Missed x4 Pulmonary nodules Pulmonary nodules/lesions, multiple Thyroid cancer (~2018) thyroidectomy Thyroid cancer Surgical History Surgical History H/O dilation and curettage H/O thyroidectomy 09/2019 History of x1 History of robot-assisted laparoscopic hysterectomy History of tubal ligation Status post embolization of uterine artery Family History Family History Other Hypertension Social History Social History Years smoked: 24 Smoking status: Current some day smoker Tobacco type: cigarettes Alcohol intake: current Substance use: unknown Exam Narrative: APPEARANCE: Well appearing, no pain, no distress, well-nourished. HEAD: normocephalic, atraumatic. EYES: PERRLA/EOMI, conjunctivae clear. NOSE: Normal no drainage NECK: Supple. No adenopathy, no masses. RESPIRATORY: Airway patent, respirations nonlabored. Clear to auscultation bilaterally, no rales, rhonchi, wheezing. CARDIOVASCULAR: Regular rate and rhythm without murmurs rubs or gallops. ABDOMINAL: Soft, nontender, nondistended, normal bowel sounds MUSCULOSKELETAL: Moves all extremities. Strength/ROM intact, No edema, No calf tenderness. NEURO: Alert. Cranial nerves II through XII intact. Grossly intact SKIN: Warm, dry. Normal Color Course Course Emergency Course: Patient reports she does feel improved. Patient is tolerating p.o. Patient was comfortable the plan for discharge and close follow-up. Patient will be provided antinausea medication for home. Patient is to follow a clear liquid diet for the next 1 to 2 days. Vital Signs Vital signs: Vital Signs Temperature 97.1 F L 02/03/22 02:02 Pulse Rate 102 H 02/03/22 02:02 Respiratory Rate 16 02/03/22 02:02 Blood Pressure 120/84 02/03/22 02:02 Pulse Oximetry 96 02/03/22 02:02 Temperature 97.1 F L 02/03/22 02:02 Pulse Rate 98 02/03/22 06:56 Respiratory Rate 16 02/03/22 06:56 Blood Pressure 127/95 H 02/03/22 06:56 Pulse Oximetry 95 02/03/22 06:56 Oxygen Delivery Room Air 02/03/22 03:44 Medical Decision Making Vital Signs
[2022-02-03 04:03] LABS: Basophils Absolute Auto 0.1 K/mm3 (0.0-0.1); Basophils Percent Auto 0.3 % (0.2-1.2); Eosinophils Absolute Auto 0.2 K/mm3 (0-0.3); Eosinophils Percent Auto 1.2 % (0-4.4); Hematocrit 45.3 % (37.0-47.0); Hemoglobin 15.4 g/dL (12.0-15.0); Immature Granulocyte Absolute 0.07 K/mm3 (0.00-0.031); Immature Granulocyte Percent A 0.4 % (0-0.5); Lymphocytes Absolute Auto 0.77 K/mm3 (0.9-3.2); Lymphocytes Percent Auto 4.5 % (18.3-44.2); Mean Corpuscular Volume 94.2 fl (80-100); Mean Platelet Volume 11.1 fl (7.4-10.4); Monocytes Absolute Auto 0.7 K/mm3 (0.1-0.6); Monocytes Percent Auto 4.3 % (2.6-8.5); Neutrophils Absolute Auto 15.1 K/mm3 (1.3-6.7); Neutrophils Percent Auto 89.3 % (45.5-73.1); Platelet Count Result 208 k/mm3 (150-375); Red Blood Count 4.81 M/mm3 (4.2-5.4); Red Cell Distribution Width 13.4 % (11.5-14.5); White Blood Count 16.9 K/mm3 (4.5-10.0)
[2022-02-03 04:04] LABS: Appearance Urine Clear (Clear); Bilirubin Urine Negative (Negative); Blood Urine Negative (Negative); Color Urine Yellow (Yellow); Glucose Urine UA Negative (Negative); Ketones Urine Trace mg/dL (Negative); Leukocyte Esterase Ur Negative LEU/UL (Negative); Nitrate Urine Negative (Negative); Protein Urine Negative (Negative); Specific Grav Ur >= 1.030 (1.001-1.035); Urobilinogen Urine 0.2 mg/dL (<2.0)
[2022-02-03 04:10] LABS: Mucus Urine Rare /lpf; RBC Urine 0-2 /hpf (0-2); Squamous Epithelial Cell Urine Occasional /hpf (Few); WBC Urine 0-3 /hpf
[2022-02-03] MEDS: METOCLOPRAMIDE HCL INJ 10 MG/2 ML VIAL IV PUSH (04:12)
[2022-02-03] MEDS: SODIUM CHLORIDE 0.9% IV 1,000 ML 999 ML IV CONT (04:13)
[2022-02-03 04:15] LABS: Alanine Aminotransferase 54 U/L (6-35); Albumin Level 5.3 g/dL (3.5-5.1); Alkaline Phosphatase 68 U/L (38-126); Anion Gap 11 mmol/L (8-16); Aspartate Amino Transferase 54 U/L (14-36); Bilirubin,Total 0.5 mg/dL (0.2-1.3); Blood Urea Nitrogen 14 mg/dL (7-17); Calcium 9.7 mg/dL (8.4-10.2); Carbon Dioxide 24 mmol/L (22-30); Chloride 107 mmol/L (98-107); Estimated CRCL calculation 76 ml/min; Estimated Glomerular Filt Rate > 60; Glucose 112 mg/dL (65-110); Lipase 83 U/L (23-300); Potassium 4.1 mmol/L (3.4-5.0); Sodium 142 mmol/L (137-145)
[2022-02-03 04:17] LABS: Add Urine Microscopic? YES
[2022-02-03 04:57] VITALS: BP 129/91; PULSE 104; RESP 16; O2SAT 98
[2022-02-03 06:56] VITALS: BP 127/95; PULSE 98; RESP 16; O2SAT 95
== END 2022-02-03 06:58 | disposition home or self-care (01) ==
PROVIDERS: Emergency Provider Emergency Medicine; PCP Family Medicine
DX: R11.2 Nausea with vomiting, unspecified (principal); Z86.2 Personal history of diseases of the blood and blood-forming organs and certain disorders involving the immune mechanism; E89.0 Postprocedural hypothyroidism; Z85.850 Personal history of malignant neoplasm of thyroid; F17.210 Nicotine dependence, cigarettes, uncomplicated
CPT/HCPCS: 36415; 80053; 81001; 81025; 83690; 85025; 96361; 96374; 99284; J2765; J7030

== ENCOUNTER 2024-04-29 08:40 | Emergency (ER) | payer BC, SELFPAY ==
--- NOTE | ~2024-04-29 | CT_ITS ---
CT brain wo/w con Ordering provider: Ashly Carrasquillo APRN History: 48 years Female with . outside facility concern meningitis . Comparison: None. Technique: CT of the head without contrast. Radiation reduction technique utilized. The dose-length product was 1709.08 mGy-cm. 100 mL Omnipaque 350 was given IV. No no FINDINGS: BRAIN PARENCHYMA AND CSF SPACES: No midline shift, mass effect or hemorrhage. The brain parenchyma a nd CSF spaces are otherwise normal. Partial empty sella turcica. VISUALIZED PARANASAL SINUSES: Well aerated. MASTOIDS: Well aerated. BONES: The bones appear intact. SOFT TISSUES: Visualized nasopharynx is normal. Superficial soft tissues are normal. IMPRESSION: No acute intracranial findings. No enhancing lesion seen. Reviewed, dictated and finalized at location A.
--- NOTE | ~2024-04-29 | CT_ITS ---
CT soft tissue neck w con Ordering provider: Ashly Carrasquillo APRN History: 48 years Female with . swollen neck . Comparison: None. Technique: CT soft tissues neck was performed with contrast. . Automated exposure control and iterat usman reconstruction technique were employed. The dose-length product was 1709.08 mGy-cm. 100 mL Omnipa que 350 was given IV. Findings: LOWER HEAD: The visualized brain parenchyma, optic globes/orbits and mastoids are normal. The visua lized paranasal sinuses are well aerated. SALIVARY GLANDS: Normal. THYROID: Not well demonstrated. SUPRAHYOID DEEP SPACES: Normal. CAROTID ARTERIES: Normal. JUGULAR VEINS: Normal. TONSILS: Slightly enlarged. ORAL CAVITY: Partially obscured by dental amalgam but normal as visualized. PHARYNX, LARYNX AND TRACHEA: Patent and normal. Soft tissue swelling is seen in the prevertebral area which measures 1.9 x 1 x 4 cm. Which is most li roseanne a collection in the prevertebral area and extending from C2 to C5. SUPERFICIAL SOFT TISSUES: Normal. No lymphadenopathy or neck mass. Small lymph nodes are seen bilater ally THORACIC INLET/VISUALIZED UPPER CHEST: Multiple nodules or cysts seen in the right apical area the la rgest measures 5 mm. Multiple Nodules also seen in the left upper lobe the largest measures 4 mm. SKELETAL: Normal. IMPRESSION: 1. Collection seen in the prevertebral area opposite the upper cervical area follow-up advised. 2. Multiple nodules in both lung upper lobes. 3-6 months follow-up CT is advised. 3. No other definite abnormality seen. Reviewed, dictated and finalized at location A. IMPRESSION: 1. Collection seen in the prevertebral area opposite the upper cervical area f ollow-up advised. 2. Multiple nodules in both lung upper lobes. 3-6 months follow-up CT is advis ed. 3. No other definite abnormality seen.
[2024-04-29 08:53] VITALS: BP 140/98; PULSE 94; RESP 18; TEMP 36.4; O2SAT 100
--- NOTE | 2024-04-29 09:13 | ED.HA ---
HPI - Headache General Chief Complaint: Headache <Ashly Carrasquillo APRN - Last Filed: 04/29/24 16:50> Stated Complaint: everything hurts <Ashly Carrasquillo APRN - Last Filed: 04/29/24 16:50> Time Seen by Provider: 04/29/24 08:57 <Ashly Carrasquillo APRN - Last Filed: 04/29/24 16:50> Source: patient <Ashly Larissa Carrasquillo APRN - Last Filed: 04/29/24 16:50> Mode of arrival: ambulatory <Ashly Carrasquillo APRN - Last Filed: 04/29/24 16:50> Limitations: no limitations <Ashly Carrasquillo APRN - Last Filed: 04/29/24 16:50> History of Present Illness HPI Narrative: Patient is a 48-year-old female who presents to the ER with a swollen neck and headache. She reports 2 days ago she started experiencing ear pain. The ear pain/pressure progressed down into her throat, head and neck. She reports she is not able to move her neck well, she endorses stiffness in her neck, she endorses difficulty swallowing, and she reports at times it is hard to breathe. Patient denies shortness of breath, chest pain, urinary symptoms, or abdominal pain. She does endorse full body muscle spasms. Patient denies any fevers. She reports she went to urgent care this morning, they performed a COVID swab, and a strep swab, but both were negative. Patient endorses a history of hypothyroidism. <Ashly Carrasquillo APRN - Last Filed: 04/29/24 16:50> Related Data Allergies/Adverse Reactions: Allergies Allergy/AdvReac Type Severity Reaction Status Date / Time peanut Allergy Severe throat Verified 04/29/24 12:47 swelling, difficulty breathing <Ashly Carrasquillo APRN - Last Filed: 04/29/24 16:50> Review of Systems Review of Systems: All systems reviewed & are unremarkable except as noted in HPI and below <Ashly Carrasquillo APRN - Last Filed: 04/29/24 16:50> PMFSH Past Medical History Medical History: Medical History x1 Anemia Anxiety Hypothyroidism Intramural uterine fibroid Missed x4 Pulmonary nodules Pulmonary nodules/lesions, multiple Thyroid cancer (~2018) thyroidectomy Thyroid cancer <Ashly Carrasquillo APRN - Last Filed: 04/29/24 16:50> Surgical History Surgical History: Surgical History H/O dilation and curettage H/O thyroidectomy 09/2019 History of x1 History of robot-assisted laparoscopic hysterectomy History of tubal ligation Status post embolization of uterine artery <Ashly Carrasquillo APRN - Last Filed: 04/29/24 16:50> Family History Family History: Family History Other Hypertension <Ashly Carrasquillo APRN - Last Filed: 04/29/24 16:50> Social History Social History: Social History Years smoked: 24 Smoking status: Current some day smoker Tobacco type: cigarettes Alcohol intake: current Substance use: unknown <Ashly Carrasquillo APRN - Last Filed: 04/29/24 16:50> Exam Narrative: GENERAL: Ill- appearing, obese, non-toxic, in mild distress d/t pain. HEAD: Normocephalic, atraumatic. Tympanic membranes are white, but have no redness associated. NECK: Extremely edematous neck, unable to palpate individual lymph nodes. No narrowing of airway, but tonsils are red and swollen. No noticeable white spots or bleeding. RESPIRATORY: Airway patent, respirations nonlabored. Clear to auscultation bilaterally, no rales, rhonchi, wheezing. CARDIOVASCULAR: Regular rate and rhythm without murmurs, rubs, or gallops. Peripheral pulses 2+ and equal bilaterally. ABDOMINAL: Soft, nontender, nondistended, no hepatosplenomegaly. Normoactive BS. MUSCULOSKELETAL: Moves all extremities. Strength/ROM intact without gross deformities. Able to move neck, but does so slowly d/
[2024-04-29 09:45] VITALS: BP 145/103; PULSE 88; RESP 16; TEMP 36.6; O2SAT 100
[2024-04-29 09:45] LABS: Basophils Absolute Auto 0.1 K/mm3 (0.0-0.1); Basophils Percent Auto 0.7 % (0.2-1.2); Eosinophils Absolute Auto 0.4 K/mm3 (0-0.3); Eosinophils Percent Auto 3.9 % (0-4.4); Hematocrit 43.1 % (37.0-47.0); Hemoglobin 14.4 g/dL (12.0-15.0); Immature Granulocyte Absolute 0.05 K/mm3 (0.00-0.031); Immature Granulocyte Percent A 0.4 % (0-0.5); Lymphocytes Absolute Auto 1.98 K/mm3 (0.9-3.2); Lymphocytes Percent Auto 17.5 % (18.3-44.2); Mean Corpuscular HGB Conc 33.4 g/dl (32-36); Mean Corpuscular Hemoglobin 31.2 pg (26-34); Mean Corpuscular Volume 93.3 fl (80-100); Mean Platelet Volume 11.1 fl (7.4-10.4); Monocytes Percent Auto 8.8 % (2.6-8.5); Neutrophils Absolute Auto 7.8 K/mm3 (1.3-6.7); Neutrophils Percent Auto 68.7 % (45.5-73.1); Platelet Count Result 184 k/mm3 (150-375); Red Blood Count 4.62 M/mm3 (4.2-5.4); Red Cell Distribution Width 13.2 % (11.5-14.5); White Blood Count 11.3 K/mm3 (4.5-10.0)
[2024-04-29] MEDS: methylPREDNISolone SOD SUCC 125 MG VIAL IV PUSH (09:48)
[2024-04-29] MEDS: SODIUM CHLORIDE 0.9% IV 1,000 ML 999 ML IV CONT (09:48)
[2024-04-29] MEDS: MORPHINE SULFATE (*CRX) 2 MG/ML INJ IV PUSH ×2 (09:48→14:01)
[2024-04-29 09:56] LABS: Lactic Acid Reflex 1.1 mmol/L (0.7-2.0)
[2024-04-29 09:57] LABS: Alanine Aminotransferase 109 U/L (6-35); Albumin Level 4.8 g/dL (3.5-5.1); Alkaline Phosphatase 78 U/L (38-126); Anion Gap 10 mmol/L (4-12); Aspartate Amino Transferase 78 U/L (14-36); Bilirubin,Total 0.7 mg/dL (0.2-1.3); Blood Urea Nitrogen 12 mg/dL (7-17); CRP 1.1 mg/dL (<1.0); Calcium 9.5 mg/dL (8.4-10.2); Carbon Dioxide 25 mmol/L (22-30); Chloride 102 mmol/L (98-107); Estimated CRCL calculation 90 ml/min; Estimated Glomerular Filt Rate > 60; Glucose 112 mg/dL (65-110); Potassium 3.9 mmol/L (3.4-5.0); Sodium 137 mmol/L (137-145)
[2024-04-29 10:56] LABS: Thyroid Stimulating Hormone Reflex < 0.015 uIU/mL (0.465-4.68)
[2024-04-29 11:01] LABS: Monoscreen Negative (Negative); Negative Monotest Control Negative (Negative); Positive Monotest Control Positive (Positive)
[2024-04-29 11:03] VITALS: BP 146/100; PULSE 80; RESP 16; TEMP 36.6; O2SAT 100
[2024-04-29 11:23] LABS: Free T4 Free Thyroxine Reflex 1.04 ng/dL (0.78-2.19)
[2024-04-29 12:05] LABS: Total Triiodothyronine (T3) 1.19 NG/ML (0.97-1.69)
[2024-04-29 12:35] LABS: Calcium 9.4 mg/dL (8.4-10.2)
[2024-04-29] MEDS: CEFEPIME 2 GM/NS 50 ML 2 GM/50 ML BAG IVPB (12:47)
[2024-04-29 12:58] VITALS: BP 144/103; PULSE 92; RESP 16; TEMP 36.6; O2SAT 98
[2024-04-29] MEDS: VANCOMYCIN 1,250 MG/NS 250 ML 1,250 MG/250 ML BAG 166.67 MG IVPB (14:16)
[2024-04-29 14:18] VITALS: BP 136/99; PULSE 91; RESP 18; TEMP 36.6; O2SAT 97
== END 2024-04-29 15:50 | disposition short-term general hospital (02) ==
PROVIDERS: Emergency Provider Registered Nurse; PCP Family Medicine
DX: L02.11 Cutaneous abscess of neck (principal); L03.221 Cellulitis of neck; E89.0 Postprocedural hypothyroidism; R91.8 Other nonspecific abnormal finding of lung field; F17.210 Nicotine dependence, cigarettes, uncomplicated; Z85.850 Personal history of malignant neoplasm of thyroid; Z86.2 Personal history of diseases of the blood and blood-forming organs and certain disorders involving the immune mechanism; Z90.710 Acquired absence of both cervix and uterus
CPT/HCPCS: 36415; 70470; 70491; 80053; 82310; 83605; 84439; 84443; 84480; 85025; 86140; 86308; 87040; 96361; 96365; 96367; 96375; 96376; 99285; J0692; J2270; J2919; J3370; J7030; Q9967

== ENCOUNTER 2025-02-10 04:09 | Emergency (ER) | payer OTHER, SELFPAY ==
--- NOTE | ~2025-02-10 | XR_ITS ---
Portable chest x-ray Comparison: 10/01/2021 Clinical History: Shortness of breath Findings: Lungs are clear, without focal consolidation or pleural effusion. Cardiomediastinal silho uette is stable. Bones and soft tissues are unremarkable. Impression: Clear lungs. Reviewed, dictated and finalized at location . Impression: Clear lungs.
--- OUTSIDE RECORDS SUMMARY | 2025-02-10 04:11 | XMS_ITS | Clinical Summary ---
Author Organization [facility] Address [address] [place] [id number] Care Team Providers Care Butter Grader Name Role Phone Pancho Matos MD Primary Care Provider [phone] Allergies Active Allergy Reactions Criticality Noted Date Comments Peanut Butter Flavoring Agent (Non-Screening) Swelling Medium 10/30/2020 Peanut Oil/peanut Butter Peanut-Containing Drug Products Anaphylaxis High 03/17/2023 Medications ferrous sulfate ER 142 (45 FE) MG Tab CR tablet Take 45 mg of iron by mouth daily. Active hydrocodone-tyra taminophen 5-325 MG tablet Take 1-2 tablets by mouth every 4 (four) hours as needed. 50 tablet 11/06/2017 Active levothyroxine (SYNTHROID) 150 MCG tablet Take 175 mcg by mouth daily. 09/30/2022 Active orphenadrine ER (NORFLEX) 100 MG TABLET SR 12 HR 12 hr tablet Take 1 tablet (100 mg total) by mouth 2 (two) times daily. 14 tablet 08/08/2023 Active Active Problems Problem Noted Date Diagnosed Date Pelvic mass 08/04/2023 Thyroid mass 11/05/2017 Family History Medical History Relation Comments Diabetes Father Hypertension Father Anemia Mother Thyroid Mother mvp Mother Hypertension Sister 1 Relation Status Comments Daughter Alive Father Alive Mother Alive Sister 1 Alive Sister 2 Alive Social History Tobacco Use Types Packs/Day Years Used Date Smoking Tobacco: Every Day Cigarettes 0.5 22 Smokeless Tobacco: Never Tobacco Cessation:Ready to Q uit: Not Asked; Counseling Given: Not Answered Alcohol Use Standard Drinks/Week Comments Yes 0 (1 standard drink = 0.6 oz pur e alcohol) socially Comments No Sex and Gender Information Value Date Recorded Sex Assigned at Not on file Legal Sex Female 1:11 PM FAMILY SERVICES ASSISTANT Gender Identity Not on file Sexual Orientation Not on file Last Filed Vital Signs Vital Sign Reading Time Taken Comments Blood Pressure 136/99 08/08/2023 11:28 AM FAMILY SERVICES ASSISTANT Pulse 98 08/08/2023 11:28 AM FAMILY SERVICES ASSISTANT Temperature 36.8 C (98.2 F) 08/08/2023 11:28 AM FAMILY SERVICES ASSISTANT Respiratory Rate 24 08/08/2023 4:00 AM FAMILY SERVICES ASSISTANT Oxygen Saturation 98% 08/08/2023 11:28 AM FAMILY SERVICES ASSISTANT Inhaled Oxygen Concentration - - Weight 92.1 kg (203 lb) 08/04/2023 6:00 AM FAMILY SERVICES ASSISTANT Height 154.9 cm (5' 1) 08/04/2023 6:00 AM FAMILY SERVICES ASSISTANT Body Mass Index 38.36 08/04/2023 6:00 AM FAMILY SERVICES ASSISTANT Plan of Treatment Health Maintenance Due Date Last Done Comments Colorectal Cancer Screening Colonoscopy (10 Years) 1976 Annual Physical 1979 Hepatitis C 1994 DTaP, Tdap and Td Vaccines ( 1 - Tdap) 1995 Hepatitis B Vaccines (1 of 3 - 19+ 3-dose series) 1995 Pneumococcal Vaccine: Pediatrics (0 to 5 Years) and At-Risk Patients (6 to 49 Years) (1 of 2 - PCV) 1995 Mammogram Screening 2016 COVID-19 Vaccine (3 - 2023-2 5 season) 2024 04/05/2021, 03/08/2021 Meningococcal B Vaccine Aged Out No l onger eligible based on patient's age to complete this topic Meningococcal Vaccine Aged Out No woo kacie eligible based on patient's age to complete this topic RSV Immunizations Under 20 Months Aged Out No longer eligible b ased on patient's age to complete this topic Goals Goal Patient Goal Type Associated Problems Recent Progress Patient-Stated? Author Patient will return to prior living situation and remain independent in ADLs upon discharge from hospital Lifestyle No Mahogany Danielson V, RN Insurance [facility] C/[facility] PROVIDER [employer] [place] [id number] Advance Directives * Full Code (Latest Code Status on File) Date Activated Date Inactivated Comments 08/07/2023 11:52 AM 08/08/2023 3:56 PM * Full Code Date Activated Date Inactivated Comments 11/05/2017 5:03 PM 11/06/2017 8:31 PM Care Teams Butter Grader Relationship Specialty Start Date End Date Pancho Matos MD [address] [place] [address] PCP - General FAMILY PRACTICE 11/02/17
--- OUTSIDE RECORDS SUMMARY | 2025-02-10 04:11 | XMS_ITS | Referral Summary ---
Author Organization [place] [id number] [facility] Address [address] [place] [address] Care Team Providers Care Lottery Manager Name Role Phone Kareem Davidson MD Primary Care Provider Vikram Yee MD Unavailable [phone] Bipin Sequeira DO Unavailable [phone] Charisse Herrmann MD Unavailable [phone] Allergies Active Allergy Reactions Criticality Noted Date Comments Other Swelling Medium 10/30/2020 Peanut Oil/peanut Butter Medications levothyroxine (SYNTHROID) 150 mcg tablet Take 1 tablet (150 mcg total) by mouth disk recordist before breakfast 30 tablet 6 2 Active predniSONE (DELTASONE) 20 mg tablet Take 1 tablet (20 mg) by mouth daily 40mg daily in the morning for 5 days then 20mg daily in the mornings for 5 days 15 tablet 2 Active Additional Information Patient not taking.Reported on 07/04/2024 oxyCODONE (ROXICODONE) solution 5 mg/5 mLIndications:P ain Take 5 mL (5 mg total) by mouth every 4 (four) hours as needed for pain for up to 10 doses 50 mL 4 Active Additional Information Patient not taking.Reported on 07/04/2024 chlorhexidine (PERIDEX) 0.12 % solution Apply 15 mL to the mouth or throat 3 (three) times a day with meals 473 mL 1 4 Active Additional Information Patient not taking.Reported on 07/04/2024 levothyroxine (SYNTHROID) 200 mcg tablet Take 1 tablet (200 mcg total) by mouth daily 4 Active Active Problems Problem Noted Date Diagnosed Date Retropharyngeal abscess 04/29/2024 Neck infection 04/29/2024 History of radioactive iodine thyroid ablation 0 04/09/2021 Multiple lung nodules 10/25/2020 Thyroid cancer 06/18/2020 Cancer Staging:Clinical stage from 12/15/2017:Stage II(cT3a, cN1a, cM1, Age at diagnosis: < 55 years) - Signed by Charisse Herrmann MD on 01/15/2021 Thyroid mass 11/05/2017 Habitual aborter, antepartum 11/09/2015 Anemia 11/09/2015 Multigravida of advanced maternal age 0411/09/2015 Status post ectopic 11/09/2015 Iron deficiency anemia, unspecified 03/17/2013 Menorrhagia 03/17/2013 Leiomyoma of uterus, unspecified 02/24/2013 Immunizations Immunization Administration Dates Next Due Rho (D) Immune Globulin, IV or IM 03/22/2016 Social History Tobacco Use Types Packs/Day Years Used Date Smoking Tobacco: Every Day Cigarettes 0.3 27 Smokeless Tobacco: Never Tobacco Cessation:Ready to Q uit: Yes Alcohol Use Standard Drinks/Week Comments Yes 0 (1 standard drink = 0.6 oz pur e alcohol) social Personal Safety Answer Date Recorded Have you ever been in or are you currently in a harmful physical or emotional relationship or is someone making you feel afraid or unsafe? Denies 04/30/2024 Comments No Sex and Gender Information Value Date Recorded Sex Assigned at Not on file Legal Sex Female 10:29 AM TRUMPET PLAYER Gender Identity Not on file Sexual Orientation Not on file Last Filed Vital Signs Vital Sign Reading Time Taken Comments Blood Pressure 125/91 10/04/2024 1:19 PM TRUMPET PLAYER Pulse 101 10/04/2024 1:19 PM TRUMPET PLAYER Temperature 36.7 C (98.1 F) 05/01/2024 7:42 AM CDT Respiratory Rate 18 05/01/2024 7:42 AM CDT Oxygen Saturation 97% 10/04/2024 1:19 PM TRUMPET PLAYER Inhaled Oxygen Concentration - - Weight 89.8 kg (198 lb) 10/04/2024 1:19 PM TRUMPET PLAYER Height 154.9 cm (5' 0.98) 04/30/2024 8:23 AM CD T Body Mass Index 37.43 04/30/2024 8:23 AM CDT Plan of Treatment Not on file Insurance [place] [facility] Advance Directives For more information, please contact: [phone] * Full Code (Latest Code Status on File) Date Activated Date Inactivated Comments 04/30/2024 1:01 AM 05/01/2024 3:54 PM Care Teams Lottery Manager Relationship Specialty Start Date End Date Kareem Davidson MD PCP - General Family Practice 01/15/21 Vikram Yee MD [address] [place] [id number] Surgeon Otolaryngology 04/10/21 Bipin Sequeira DO [address] [facility] [address] [place] [id number] Medical Oncologist Medical Oncology 07/04/24 Charisse Herrmann MD [address] [place] [address] [id number] Radiation Oncologist Radiation Oncology 07/20/24
--- OUTSIDE RECORDS SUMMARY | 2025-02-10 04:11 | XMS_ITS | Encounter Summary ---
Author Organization [facility] Address [address] [place] [address] Phone Care Team Providers Care Home Health Aide Caregiver Name Role Phone Bipin Sequeira DO Primary Care Provider [phone] Encounter Details Date Type Department Care Team (Late st Contact Info) Description 11/01/2024 Telephone [facility] [address] [phone] Bipin Sequeira DO [address] [place] [phone] Social History Tobacco Use Types Packs/Day Years Used Date Smoking Tobacco: Some Days Cigarettes Smokeless Tobacco: Never Alcohol Use Standard Drinks/Week Comments Yes 1 (1 standard drink = 0.6 oz pur e alcohol) daily Comments Unknown Sex and Gender Information Value Date Recorded Sex Assigned at Not on file Legal Sex Female 12:04 AM CDT Gender Identity Not on file Sexual Orientation Not on file documented as of this encounter Plan of Treatment Upcoming Encounters Date Type Department Care Team (Late st Contact Info) Description 04/11/2025 8:00 AM CDT Lab [facility] [address] [phone] Lab, [facility] 04/11/2025 8:15 AM CDT Ancillary Procedure [facility] [address] [phone] 04/11/2025 8:30 AM CDT Ancillary Procedure [facility] [address] [phone] 04/11/2025 1:00 PM CDT Office Visit [facility] [address] [phone] Bipin Sequeira DO [address] [place] [phone] documented as of this encounter Visit Diagnoses Not on filedocumented in this encounter Care Teams Home Health Aide Caregiver Relationship Specialty Start Date End Date Bipin Sequeira DO [address] [place] [phone] PCP - General Oncology 11/21/22 documented as of this encounter
--- OUTSIDE RECORDS SUMMARY | 2025-02-10 04:11 | XMS_ITS | Clinical Summary ---
[facility] Address [address] [place] [address] Care Team Providers Care Night Assistant Name Role Phone Lesvia Aguirre ZARI Primary Care Provider [phone] Allergies No known active allergies Medications ciprofloxacin HCl (CIPRO) 500 mg tablet TAKE 1 TABLET BY MOUTH EVERY 12 HOURS FOR 7 DAYS 06/15/2020 Active Euthyrox 175 mcg tabletIndication s:Thyroid cancer (CMS/HCC) Take 1 Tablet (175 mcg) by mouth daily. 90 Tablet 3 09/06/2020 Active Active Problems Problem Noted Date Diagnosed Date Thyroid cancer 06/18/2020 Encounters Date Type Department Care Team Description 01/17/2025 External Device Data [facility] ABSTRACTION Provider, Abstract 12/22/2024 External Device Data [facility]STRA[facility] Provider, Abstract 12/21/2024 External Device Data [facility] Provider, Abstract 12/20/2024 External Device Data [facility] Provider, Abstract 11/15/2024 External Device Data [facility]STRACTION Provider, Abstract from Last 3 Months Family History Medical History Relation Name Comments Healthy Daughter Healthy Father Healthy Mother Healthy Sister 1 Healthy Sister 2 Relation Name Status Comments Daughter Alive Father Alive Mother Alive Sister 1 Alive Sister 2 Alive Social History Tobacco Use Types Packs/Day Years Used Date Smoking Tobacco: Every Day Cigarettes 0.5 25 Tobacco Cessation:Ready to Q uit: Yes Alcohol Use Standard Drinks/Week Comments Yes 3 (1 standard drink = 0.6 oz pur e alcohol) Comments Unknown Sex and Gender Information Value Date Recorded Sex Assigned at Not on file Legal Sex Female 10:24 AM STEAMER BLOCKER Gender Identity Not on file Sexual Orientation Not on file Last Filed Vital Signs Vital Sign Reading Time Taken Comments Blood Pressure 112/79 07/02/2020 1:34 PM STEAMER BLOCKER Pulse 104 07/02/2020 1:34 PM STEAMER BLOCKER Temperature 37.3 C (99.1 F) 07/02/2020 1:34 PM STEAMER BLOCKER Respiratory Rate - - Oxygen Saturation 98% 07/02/2020 1:34 PM STEAMER BLOCKER Inhaled Oxygen Concentration - - Weight 83.9 kg (185 lb) 08/14/2020 1:06 PM STEAMER BLOCKER Height 154.9 cm (5' 1) 08/14/2020 1:06 PM STEAMER BLOCKER Body Mass Index 34.96 08/14/2020 1:06 PM STEAMER BLOCKER Plan of Treatment Health Maintenance Due Date Last Done Comments DTAP/TDAP/TD VACCINES (1 - Tdap) 1995 HEPATITIS B VACCINES (1 of 3 - 19+ 3-dose series) 03/1995 BREAST CANCER SCREENING 2016 COLORECTAL SCREENING 2021 Colorectal Cancer Screening 2021 FIT-DNA Q 3 years 2021 FIT/FOBT Q 1 year 2021 Flex Sig/CT Colonography Q 5 years 2021 INFLUENZA VACCINE (#1) 2025 Insurance Care Teams Night Assistant Relationship Specialty Start Date End Date Lesvia Aguirre FNP [address] [place] [address] [place] [address] PCP - General Nurse Practitioner Family 06/18/20
--- OUTSIDE RECORDS SUMMARY | 2025-02-10 04:11 | XMS_ITS | Clinical Summary ---
Author Organization [facility] Address [address] [place] [address] Care Team Providers Care Oracle Database Architect Name Role Phone A, Unknown Practice Primary Care Provider Source Comments [facility],non-owned Affiliates and Associated Physician Practices is amultiple site organization consisting of ambulatory clinics and hospital sitesin [place], [place], [place] and [place]. This disclosure is being madepursuant to the Care Everywhere program and may not contain all information available regarding this patient. Last updated 18.[facility] Allergies Active Allergy Reactions Criticality Noted Date Comments Peanut-Derived Anaphylaxis High 03/17/2023 Medications * Be aware that medications may not be up to date on this document. Alwaysverify current medications with the patient. levothyroxine (Synthroid) 175 MCG tablet Take 1 (one) tablet by mouth once daily 02/02/2023 Active Active Problems Problem Noted Date Diagnosed Date Mass of pelvis 03/23/2023 Encounters Date Type Department Care Team Description 02/09/2025 Telephone [facility] [address], [place] [phone] Eleazar Miller MD Reschedule Appointment 01/27/2025 Travel 12/09/2024 Travel 12/09/2024 Telephone [facility] [address] [place] [phone] Eleazar Miller MD Appointment 12/08/2024 Telephone [facility] [address] [place] [phone] Lorenzo Burden MD Referral from Last 3 Months Social History Tobacco Use Types Packs/Day Years Used Date Smoking Tobacco: Never Assessed Comments Unknown Sex and Gender Information Value Date Recorded Sex Assigned at Not on file Legal Sex Female 7:55 AM CERTIFIED RESPIRATORY THERAPIST Gender Identity Not on file Sexual Orientation Not on file Last Filed Vital Signs Vital Sign Reading Time Taken Comments Blood Pressure 131/91 03/23/2023 2:24 PM CDT Pulse 86 03/23/2023 2:24 PM CDT Temperature 36.6 C (97.8 F) 03/23/2023 2:24 PM CDT Respiratory Rate - - Oxygen Saturation 95% 03/23/2023 2:24 PM CDT Inhaled Oxygen Concentration - - Weight 89.4 kg (197 lb) 03/23/2023 2:24 PM CDT Height 154.9 cm (5' 1) 03/23/2023 2:24 PM CDT Body Mass Index 37.22 03/23/2023 2:24 PM CDT Plan of Treatment Upcoming Encounters Date Type Department Care Team (Late st Contact Info) Description 04/11/2025 3:00 PM CDT Office Visit [facility] ENT [address] [place] [phone] Eleazar Miller MD [address] [place] [address] [place] [address] Health Maintenance Due Date Last Done Comments COLOGUARD (AGES 45-75) - COLON CA SCREENING 1976 COLON MONITORING 1976 COLONOSCOPY - COLON CA SCREENING 1976 CT COLONOGRAPHY - COLON CA SCREENING 1976 Colorectal Cancer Screening 1976 FIT - COLON CA SCREENING 1976 FLEX SIG - COLON CA SCREENING 1976 LIPID TESTING 1976 MAMMOGRAM 1976 HIV SCREENING 1991 HEPATITIS C SCREENING 06/06/1994 DTAP/TDAP/TD VACCINES (1 - Tdap) 1995 HEPATITIS B VACCINE (1 of 3 - 19+ 3-dose series) 1995 PAP SMEAR 1997 COVID-19 VACCINE (2023- season) 2024 DEPRESSION SCREENING 08/03/2024 INFLUENZA VACCINE (#1) 2025 ZOSTER VACCINE (1 of 2) 2026 SCREENING FOR DIABETES 11/09/2027 , 11/08/2024, 02/19/2024, Additional history exists HIB VACCINE Aged Out No longer eligi ble based on patient's age to complete this topic HPV VACCINE Aged Out No longer eligi ble based on patient's age to complete this topic MENINGOCOCCAL (Group B) VACCINE SHARED DECISION-MAKING Aged Out No longer eligible based on patient's age to complete this topic MENINGOCOCCAL GROUPS A/C/Y/W VACCINE Aged Out No longer eligible based on patient's age to complete this topic PNEUMOCOCCAL VACCINE Aged Out No long er eligible based on patient's age to complete this topic Procedures Procedure Name Priority Date/Time Associated Diagnosis Comments COMPREHENSIVE METABOLIC PANEL STAT 04/11/2009 10:14 PM CDT Noninflam Dis Vagina NEC from Last 3 Months or Most Recently Relevant to Health Maintenance Results * (ABNORMAL) COMPREHENSIVE METABOLIC PANEL (04/11/2009 10:14 PM CDT) Sodium 142 137 - 145 mmol/L [facility] Potassium 3.3(L) 3.6 - 5.0 mmol/L [facility] Chloride 108(H) 98 - 107 mmol/L [facility] BUN 9 7 - 17 mg/dl [facility] Creatinine 0.74 0.52 - 1.04 mg/dl [facility] Glucose 83 65 - 105 mg/dl [facility] Calcium 9.4 8.4 - 10.2 mg/dl [facility] Alkaline Phosphatase 67 38 - 126 U/L [facility] AST 28 8 - 39 U/L [facility] Bilirubin Total 0.2 0.2 - 1.3 mg/dl [facility] Protein Total 8.1 6.3 - 8.2 gm/dl [facility] Albumin 4.6 3.9 - 5.0 gm/dl [facility] CO2 24 22 - 30 mmol/L [facility] ALT 10 9 - 52 U/L [facility] eGFR by MDRD 91 88 - 128 mL/min/1.7 3m2 [facility] Comment eGFR [facility] Comment: The eGFR does not apply to patients who are younger than 18 or older than 70. BLOOD SPECIMEN / Unknown 04/11/2009 10:14 PM CDT us Mary Faye DO LAB - CHEMISTRY ORDERABLES Fin al Result Performing Organization Address City/State/[facility] Co de Phone Number [facility] [address] [place] [address] from Last 3 Months or Most Recently Relevant to Health Maintenance Insurance MEDICAID - OUT OF [facility] Care Teams Oracle Database Architect Relationship Specialty Start Date End Date A, Unknown Practice [address] [place] [phone] PCP - General 03/14/23
--- OUTSIDE RECORDS SUMMARY | 2025-02-10 04:11 | XMS_ITS | Encounter Summary ---
Author Organization [facility] Address [address] [place] [address] Care Team Providers Care [employer] Electronics Wireman Name Role Phone Kareem Davidson MD Primary Care Provider Charisse Herrmann MD Unavailable [phone] Vincenzo Boone MD, Christos Unavailable [phone] Vikram Yee MD Unavailable Bipin Sequeira DO Unavailable [phone] Charisse Herrmann MD Unavailable [phone] Encounter Details Date Type Department Care Team (Late st Contact Info) Description 05/30/2024 Telephone [facility] Medical Office Building 2 Radiation Oncology [address] [place] [phone] Charisse Herrmann MD [address] [place] [phone] Social History Tobacco Use Types Packs/Day Years Used Date Smoking Tobacco: Every Day Cigarettes 0.3 27 Smokeless Tobacco: Never Alcohol Use Standard Drinks/Week Comments Yes 0 [...] on file Legal Sex Female 10:29 AM MISSING PERSONS INVESTIGATOR Gender Identity Not on file Sexual Orientation Not on file documented as of this encounter Plan of Treatment Not on file documented as of this encounter Visit Diagnoses Not on filedocumented in this encounter Care Teams X Ray Electronics Wireman Relationship Specialty Start Date End Date Kareem Davidson MD PCP - General Family Practice 01/15/21 Charisse Herrmann MD Radiation Oncologist Radiation Oncology 01/15/2107/19 Christos Loya Jr., MD Medical Oncologist/Tissue Specialist Medical Oncology 04/10/21 07/03/24 [place] [address] [place] [address] [place], [place] [phone] Surgeon Otolaryngology 04/10/21 Bipin Sequeira DO [address] [place] [address] [place] [address] Medical Oncologist Medical Oncology 07/04/24 Charisse Herrmann MD [address] [place] [address] Radiation Oncologist Radiation Oncology 07/20/24 documented as of this encounter
--- OUTSIDE RECORDS SUMMARY | 2025-02-10 04:11 | XMS_ITS ---
Author Organization [facility] [address] [facility] Address [address] [place] [address] Care Team Providers Care Budget Clerk Name Role Phone Kareem Davidson MD Primary Care Provider Vikram Yee MD Unavailable [phone] Bipin Sequeira DO Unavailable [phone] Charisse Herrmann MD Unavailable [phone] Active Problems Problem Noted Date Diagnosed Date [...] Menorrhagia 03/17/2013 Leiomyoma of uterus, unspecified 02/24/2013 Current Treatment and Therapy Plans No current plan information found. Past Treatment and Therapy Plans No past plan information found. Lifetime Dose Tracking * Chemical Lifetime Dose Automatic Entry Manual Entr y DLP 1,444 mGycm 1,444 mGycm 0 mGycm
--- OUTSIDE RECORDS SUMMARY | 2025-02-10 04:11 | XMS_ITS | Clinical Summary ---
Author Organization [facility] Address [address], [facility] [address] [place] [address] Phone Care Team Providers Care Electrifier Operator Name Role Phone Hua, Bipin Carrie HONEYCUTT Primary Care Provider [phone] Allergies Active Allergy Reactions Criticality Noted Date Comments Other-Environmental Allergen (Not Found In Search) Swelling Medium 10/30/2020 Peanut Oil/peanut Butter Medications levothyroxine (SYNTHROID) 150 MCG TabletIndicatio ns:Thyroid cancer (HCC) Take 1 Tablet by mouth daily. 90 Tablet 1 5 Active levothyroxine (SYNTHROID) 200 MCG Tablet Take 1 Tablet by mouth daily. 90 Tablet 1 5 Active albuterol 108 (90 Base) MCG/ACT Aerosol Solution TAKE 1-2 INHALATION(S) BY MOUTH EVERY 4 HOURS NEEDED FOR WHEEZING 5 Active traMADol (ULTRAM) 50 MG Tablet TAKE 1 TABLET BY MOUTH EVERY 6 HOURS NEEDED 4 02/08/20 25 Discontinu ed(Med List Clean Up) orphenadrine (NORFLEX) 100 MG TABLET SR 12 HR Take 100 mg by mouth. 4 02/08/20 25 Discontinu ed(Med List Clean Up) Active Problems Problem Noted Date Diagnosed Date Elevated blood pressure reading 09/06/2024 History of radioactive iodine thyroid ablation 0 04/09/2021 Multiple lung nodules 10/25/2020 Thyroid cancer 06/18/2020 Leiomyoma of uterus, unspecified 02/24/2013 Encounters Date Type Department Care Team Description 02/07/2025 1:00 PM CDT Office Visit [facility] [address] [phone] Bipin Sequeira DO Thyroid cancer (HCC) (Primary Dx) 02/07/2025 12:45 PM CDT Lab [facility] [address] [phone] Lab[facility] ([facility]); Pulmonary nodules; History of radioactive iodine thyroid ablation 02/07/2025 Travel from Last 3 Months Immunizations Immunization Administration Dates Next Due RHO(D) Immune Globulin- IV Or IM 03/22/2016 Family History Medical History Relation Name Comments Thyroid Cancer Mother Relation Name Status Comments Mother Alive Social History Tobacco Use Types Packs/Day Years Used Date Smoking Tobacco: Some Days Cigarettes Smokeless Tobacco: Never Tobacco Cessation:Ready to Q uit: No; Counseling Given: Yes Alcohol Use Standard Drinks/Week Comments Yes 1 (1 standard drink = 0.6 oz pur e alcohol) daily Comments Unknown Sex and Gender Information Value Date Recorded Sex Assigned at Not on file Legal Sex Female 12:04 AM CDT Gender Identity Not on file Sexual Orientation Not on file Last Filed Vital Signs Vital Sign Reading Time Taken Comments Blood Pressure 144/94 02/07/2025 1:03 PM CDT Pulse 99 02/07/2025 1:03 PM CDT Temperature 36.7 C (98 F) 02/07/2025 1:03 PM CDT Respiratory Rate 18 11/08/2024 2:28 PM CDT Oxygen Saturation 97% 02/07/2025 1:03 PM CDT Inhaled Oxygen Concentration - - Weight 91.8 kg (202 lb 4.8 oz) 02/07/2025 1:03 P M CDT Height 154.9 cm (5' 1) 02/07/2025 1:03 PM CDT Body Mass Index 38.22 02/07/2025 1:03 PM CDT Plan of Treatment Upcoming Encounters Date Type Department Care Team (Late st Contact Info) Description 04/11/2025 8:00 AM CDT Lab [facility] [address] [phone] Lab, [facility] 04/11/2025 8:15 AM CDT Ancillary Procedure [facility] [address] [phone] 04/11/2025 8:30 AM CDT Ancillary Procedure [facility] [address] [phone] 04/11/2025 1:00 PM CDT Office Visit [facility] [address] [phone] Bipin Sequeira, DO [address] [place] [phone] Health Maintenance Due Date Last Done Comments Hepatitis C Virus (HCV) Screening 1976 Mammogram 1976 TdaP Immunization 1976 Hepatitis B Immunization (1 of 3 - 19+ 3-dose series) 1995 Pneumococcal Immunization Combined (1 of 2 - PCV) 1995 Pap Smear 1997 Cervical Cancer Screening (CCS) 2006 HPV/Cotest 2006 Discussion re Starting/Frequency of Mammograms 2016 SARS-COV-2 Immunization (3 - Moderna risk series) 05/03/2021 04/05/2021, 03/08/2021 Cologuard 2021 Colonoscopy 2021 Colorectal Cancer Screening 2021 Immunochemical Fecal Occult Blood 2021 Influenza Immunization (#1) 2025 Respiratory Syncytial Virus (RSV) Immunization (Adult) (1 - 1-dose 75+ series) 2051 Human Papillomavirus (HPV) Immunization Aged Out No longer eligible b ased on patient's age to complete this topic Meningococcal Immunization (ACWY) Aged Out No longer eligible b ased on patient's age to complete this topic Rotavirus Immunization Aged Out No lo nger eligible based on patient's age to complete this topic Procedures Procedure Name Priority Date/Time Associated Diagnosis Comments CBC WITH AUTO DIFF OH Routine 02/07/2025 12:51 PM CDT THYROID STIMULATING HORMONE (TSH) Routine 02/07/2025 12:51 PM CDT Thyroid cancer (HCC) Pulmonary nodules History of radioactive iodine thyroid ablation THYROXINE (T4) FREE Routine 02/07/2025 1 2:51 PM CDT Thyroid cancer (HCC) Pulmonary nodules History of radioactive iodine thyroid ablation CMP (COMPREHENSIVE METABOLIC PANEL) Routine 02/07/2025 12:51 PM CDT Thyroid cancer (HCC) Pulmonary nodules History of radioactive iodine thyroid ablation from Last 3 Months Results * (ABNORMAL) CBC WITH AUTO DIFF OH (02/07/2025 12:51 PM CDT) WBC 7.1 4.0 - 10.0 10*3/uL CANCER STUDIO [employer]CH [employer] HGB 14.2 11.2 - 15.7 g/dL [facility] [employer]UD[employer] [facility] HCT 42.7 34.1 - 44.9 % [facility] [employer]UD[employer] [facility] PLT 205 163 - 369 10*3/uL [facility] [employer] MPV 10.9 9.4 - 12.4 fL [facility] [employer] RBC 4.43 3.93 - 5.22 10*6/uL [facility] STUDIO [employer] [facility] MCV 96(H) 79 - 95 fL [facility] MCH 32.1 25.6 - 32.2 pg [facility]ER STUDIO [employer] [facility] MCHC 33.3 32.2 - 36.5 g/dL [facility] [employer] [facility] RDW 12.7 11.6 - 14.4 % [facility] [employer] Neutrophils % 59.8 36.0 - 66.0 % [facility] [employer] [facility] Lymphocytes % 25.5 19.0 - 40.0 % [facility] [employer] Monocytes % 6.0 4.1 - 12.1 % [facility] [employer] Eosinophils % 7.6(H) 0.0 - 3.5 % [facility] [employer] Basophils % 0.8 0.0 - 1.0 % [facility] [employer]UD[employer] [facility] Absolute Neutrophils 4.3 1.4 - 6.6 10*3/uL [facility]UD[facility] [employer] Absolute Lymphocytes 1.8 0.8 - 4.0 10*3/uL [facility] Absolute Monocytes 0.4 0.2 - 1.2 10*3/uL [facility] Absolute Eosinophils 0.5(H) 0.0 - 0.4 10*3/uL [facility] Absolute Basophils 0.1 0.0 - 0.1 10*3/uL [facility] 02/07/2025 12:5 1 PM CDT Bipin Sequeira DO LAB SEND OUTS Final Result Performing Organization Address [facility]/ZIP Co de Phone Number [facility] Cancer Care [address] [address], * THYROXINE (T4) FREE (02/07/2025 12:51 PM CDT) THYROXINE (T4), FREE, 1.09 0.61 - 1.12 ng/dL [facility] Comment: Specimens that contain high levels of Biotin >10 ng/mL may cause false high results for this method. Interpret results in light of the total clinical presentation of the patient. To minimize the interference of high levels of Biotin, it is recommended that patients discontinue taking Biotin 72 hours prior to testing. Blood 02/07/2025 12:5 1 PM CDT Narrative [facility] - 02/08/2025 2:57 PM CDT Is the patient taking Biotin supplement? No Release to patient->Immediate Bipin Sequeira DO CHEMISTRY ORDERABLES Final Res ult Performing Organization Address [facility]/ZIP Co de Phone Number [facility] Cancer Care [address] [address], * (ABNORMAL) THYROID STIMULATING HORMONE (TSH) (02/07/2025 12:51 PM CDT) TSH 0.17(L) 0.45 - 5.33 uIU/mL [facility] Blood 02/07/2025 12:5 1 PM CDT Narrative [facility] [employer] [facility] - 02/08/2025 2:57 PM CDT Release to patient->Immediate Bipin Sequeira DO CHEMISTRY ORDERABLES Final Res ult [facility] [employer] [facility] [place] [address], * (ABNORMAL) CMP (COMPREHENSIVE METABOLIC PANEL) (02/07/2025 12:51 PM CDT) Glucose 155(H) 70 - 105 mg/dL [facility] STUDIO COUCH FR[employer]DER [facility] Blood Urea Nitrogen 11 7 - 25 mg/dL [facility] Creatinine 0.6 0.6 - 1.2 mg/dL [facility] Sodium 142 136 - 145 mEq/L [facility] Potassium 4.0 3.5 - 5.1 mEq/L [facility] Chloride 105 98 - 107 mEq/L [facility] Bicarbonate 26 21 - 31 mEq/L [facility] Total Bilirubin 0.4 0.3 - 1.0 mg/dL [facility] Alk. Phosphatase 59 34 - 104 U/L [facility] Aspartate Aminotransferase 32 13 - 39 U/L [facility] Alanine Aminotransferase 38 7 - 52 U/L [facility] Total Protein 7.1 6.4 - 8.9 g/dL [facility] Albumin 4.7 3.5 - 5.7 g/dL [facility] Calcium 9.7 8.6 - 10.3 mg/dL [facility] Anion Gap 15.0 7.0 - 15.0 mEq/L [facility] Globulin 2.4 2.0 - 3.5 g/dL [facility] EGFR 110 >60 ml/min/1. 73m2 [facility] STUDIO COUCH FR[employer]DER [facility] Comment: This eGFR is calculated using 2020 CKD-EPI Creatinine equation without race modifier based on the NKF-ASN task force recommendations Equation: qTXZ=784*min(SCr/k,1)a*max(SCr/k,1)-1.200*0.9938Age*1.012 (if female), where SCr is serum creatinine, k is 0.7 for females and 0.9 for males, and a is -0.241 for females and -0.302 for males Blood 02/07/2025 12:5 1 PM CDT Narrative [facility] [employer] [facility] - 02/07/2025 1:50 PM CDT Release to patient->Immediate IS THE PATIENT REQUIRED TO BE FASTING FOR 8 HOURS?->No us Bipin Sequeira DO CHEMISTRY ORDERABLES Final Res ult [facility] [facility] [address] [place] [address], [place] [phone] from Last 3 Months Insurance MEDICAID [place] Care Teams Electrifier Operator Relationship Specialty Start Date End Date Bipin Sequeira DO [address] [place] [phone] PCP - General Oncology 11/21/22
--- OUTSIDE RECORDS SUMMARY | 2025-02-10 04:11 | XMS_ITS | Encounter Summary ---
Author Organization [facility] Address [address] [place] [address] Phone Care Team Providers Care Manager Product Support Name Role Phone Bipin Sequeira DO Primary Care Provider [phone] Reason for Visit * Reason Comments Medication Refill Encounter Details Date Type Department Care Team (Late st Contact Info) Description 08/18/2024 Refill [facility] [address] [phone] Bipin Sequeira DO [address] [place] [phone] Medication Refill Social History Tobacco Use Types Packs/Day Years [...] AM CDT Lab [facility] [address] [phone] Lab, [facility] 04/11/2025 8:15 AM CDT Ancillary Procedure [facility] [address] [phone] 04/11/2025 8:30 AM CDT Ancillary Procedure [facility] [address] [phone] 04/11/2025 1:00 PM CDT Office Visit [facility] [address] [phone] Bipin Sequeira DO [address] [place] [phone] documented as of this encounter Visit Diagnoses Not on filedocumented in this encounter Care Teams Manager Product Support Relationship Specialty Start Date End Date Bipin Sequeira DO [address] [place] [phone] PCP - General Oncology 11/21/22 documented as of this encounter
--- OUTSIDE RECORDS SUMMARY | 2025-02-10 04:11 | XMS_ITS | Encounter Summary ---
Author Organization [facility] Address [address] [place] [address] Care Team Providers Care Service Advocate Contact Name Role Phone A, Unknown Practice Primary Care Provider [phone] Reason for Visit * Reason Onset Date Comments Reschedule Appointment 02/09/2025 Encounter Details Date Type Department Care Team (Late st Contact Info) Description 02/09/2025 Telephone [facility] - ENT [address] [place] [phone] Eleazar Miller MD [address] [place] [address] DEPT OF OTOLARYNGOLOGY [place], [place] [id number] Reschedule Appointment Social History Tobacco Use Types Packs/Day Years Used Date Smoking Tobacco: Never Assessed Comments Unknown Sex and Gender Information Value Date Recorded Sex Assigned at Not on file Legal Sex Female 7:55 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 Aquino 04/11 to a later time or to another day after 3:00pm. [phone] documented in this encounter Plan of Treatment Upcoming Encounters Date Type Department Care Team (Late st Contact Info) Description 04/11/2025 3:00 PM CDT Office Visit [facility] ENT [address] [place] [phone] Eleazar Miller MD [address] [place] [address] [place] [address] documented as of this encounter Visit Diagnoses Not on filedocumented in this encounter Care Teams Service Advocate Contact Relationship Specialty Start Date End Date A, Unknown Practice [address] [place] [address] PCP - General 03/14/23 documented as of this encounter
--- OUTSIDE RECORDS SUMMARY | 2025-02-10 04:11 | XMS_ITS | Clinical Summary ---
Author Organization [place] [id number] [facility] Address [address] [place] [address] Care Team Providers Care Hand Twister Name Role Phone Kareem Davidson MD Primary Care Provider Vikram Yee MD Unavailable [phone] Bipin Sequeira DO Unavailable [phone] Charisse Herrmann MD Unavailable [phone] Allergies Active Allergy Reactions Criticality Noted Date Comments Other Swelling Medium 10/30/2020 Peanut Oil/peanut Butter Medications levothyroxine (SYNTHROID) 150 mcg tablet Take 1 tablet (150 mcg total) by mouth general internal medicine physician before breakfast 30 tablet 6 2 Active [...] (D) Immune Globulin, IV or IM 03/22/2016 Surgical History Surgery Date Site/Laterality Comments [place] DILATION & CURETTAGE DX&/ THER NONOBSTETRIC Dilation And Curettage - (Added by TW Conv) Medical History Medical History Date Comments Personal history of diseases of the blood and blood-forming organs and certain disorders involving the immune mechanism History of an emia - (Added by TW Conv) Cancer (HCC) thyroid Family History Medical History Relation Name Comments Thyroid cancer Mother Relation Name Status Comments Mother Alive [...] on file Legal Sex Female 10:29 AM APPAREL CUTTER Gender Identity Not on file Sexual Orientation Not on file Obstetrics History Last Filed Vital Signs Vital Sign Reading Time Taken Comments Blood Pressure 125/91 10/04/2024 1:19 PM APPAREL CUTTER Pulse 101 10/04/2024 1:19 PM APPAREL CUTTER Temperature 36.7 C (98.1 F) 05/01/2024 7:42 AM CDT Respiratory Rate 18 05/01/2024 7:42 AM CDT Oxygen Saturation 97% 10/04/2024 1:19 PM APPAREL CUTTER Inhaled Oxygen Concentration - - Weight 89.8 kg (198 lb) 10/04/2024 1:19 PM APPAREL CUTTER Height 154.9 cm (5' 0.98) 04/30/2024 8:23 AM CD T Body Mass Index 37.43 04/30/2024 8:23 AM CDT Plan of Treatment Health Maintenance Due Date Last Done Comments Breast Cancer Screening-Mammogram 1976 Cervical Cancer Screening 1976 Colon Cancer Screening-Colonoscopy 1976 Depression Screening 1976 Hepatitis C Screening 1976 DTaP/Tdap/Td Vaccine (1 - Tdap) 1987 Hepatitis B Screening 1994 Regular Well Visit/Exam 18-64 1994 Pneumococcal vaccine <65 (1 of 2 - PCV) 1995 Zoster Vaccine (1 of 2) 1995 Covid-19 Vaccine (3 - Moderna risk series) 05/03/2021 04/05/2021, 03/08/2021 Influenza Vaccine (#1) 2025 Insurance [facility] Advance Directives For more information, please contact: [phone] * Full Code (Latest Code Status on File) Date Activated Date Inactivated Comments 04/30/2024 1:01 AM 05/01/2024 3:54 PM Care Teams Hand Twister Relationship Specialty Start Date End Date Kareem Davidson MD PCP - General Family Practice 01/15/21 Vikram Yee MD [address] [place] [address] Surgeon Otolaryngology 04/10/21 Bipin Sequeira DO [address] [place] [address] Luis [place] [phone] Medical Oncologist Medical Oncology 07/04/24 Charisse Herrmann MD [address] [place] [address] [id number] Radiation Oncologist Radiation Oncology 07/20/24
[2025-02-10 04:15] VITALS: BP 126/84; PULSE 89; RESP 17; TEMP 37.1; O2SAT 100
--- OUTSIDE RECORDS SUMMARY | 2025-02-10 04:38 | XMS_ITS | Encounter Summary ---
Author Organization [facility] Address [address] [place] [address] Phone Care Team Providers Care Work Over Rig Operator Name Role Phone Bipin Sequeira DO Primary Care Provider [phone] Encounter Details Date Type Department Care Team (Late st Contact Info) Description 11/01/2024 Telephone [facility] [address] [phone] Bipin Sequeira DO [address] [place] [phone] Social History Tobacco Use Types Packs/Day [...] AM CDT Lab [facility] [address] [phone] Lab, [facility] 04/11/2025 8:15 AM CDT Ancillary Procedure [facility] [address] [phone] 04/11/2025 8:30 AM CDT Ancillary Procedure [facility] [address] [phone] 04/11/2025 1:00 PM CDT Office Visit [facility] [address] [phone] Bipin Sequeira DO [address] [place] [phone] documented as of this encounter Visit Diagnoses Not on filedocumented in this encounter Care Teams Work Over Rig Operator Relationship Specialty Start Date End Date Bipin Sequeira DO [address] [place] [phone] PCP - General Oncology 11/21/22 documented as of this encounter
--- OUTSIDE RECORDS SUMMARY | 2025-02-10 04:38 | XMS_ITS | Clinical Summary ---
Author Organization [facility] Address [address] [place] [address] Care Team Providers Care Microsoft Dynamics Consultant Name Role Phone Lesvia Aguirre ZARI Primary Care Provider [phone] Allergies No known active allergies Medications ciprofloxacin [...] on file Legal Sex Female 10:24 AM RN ENDOCRINOLOGY Gender Identity Not on file Sexual Orientation Not on file Last Filed Vital Signs Vital Sign Reading Time Taken Comments Blood Pressure 112/79 07/02/2020 1:34 PM RN ENDOCRINOLOGY Pulse 104 07/02/2020 1:34 PM RN ENDOCRINOLOGY Temperature 37.3 C (99.1 F) 07/02/2020 1:34 PM RN ENDOCRINOLOGY Respiratory Rate - - Oxygen Saturation 98% 07/02/2020 1:34 PM RN ENDOCRINOLOGY Inhaled Oxygen Concentration - - Weight 83.9 kg (185 lb) 08/14/2020 1:06 PM RN ENDOCRINOLOGY Height 154.9 cm (5' 1) 08/14/2020 1:06 PM RN ENDOCRINOLOGY Body Mass Index 34.96 08/14/2020 1:06 PM RN ENDOCRINOLOGY Plan of Treatment Health Maintenance Due Date Last Done Comments DTAP/TDAP/TD VACCINES (1 - Tdap) 1995 HEPATITIS B VACCINES (1 of 3 - 19+ 3-dose series) 03/1995 BREAST CANCER SCREENING 2016 COLORECTAL SCREENING 2021 Colorectal Cancer Screening 2021 FIT-DNA Q 3 years 2021 FIT/FOBT Q 1 year 2021 Flex Sig/CT Colonography Q 5 years 2021 INFLUENZA VACCINE (#1) 2025 Insurance Care Teams Microsoft Dynamics Consultant Relationship Specialty Start Date End Date Lesvia Aguirre FNP [address] [place] [address] [place] [address] PCP - General Nurse Practitioner Family 06/18/20
--- OUTSIDE RECORDS SUMMARY | 2025-02-10 04:38 | XMS_ITS | Clinical Summary ---
Author Organization [place] [id number] [facility] Address [address] [place] [address] Care Team Providers Care Wic Site Coordinator Name Role Phone Kareem Davidson MD Primary Care Provider Vikram Yee MD Unavailable [phone] Bipin Sequeira DO Unavailable [phone] Charisse Herrmann MD Unavailable [phone] Allergies Active Allergy Reactions Criticality Noted Date Comments Other Swelling Medium 10/30/2020 Peanut Oil/peanut Butter Medications levothyroxine (SYNTHROID) 150 mcg tablet Take 1 tablet (150 mcg total) by mouth fire regulator before breakfast 30 tablet 6 2 Active [...] 03/22/2016 Surgical History Surgery Date Site/Laterality Comments [place] DILATION & CURETTAGE DX&/ THER NONOBSTETRIC Dilation [...] on file Legal Sex Female 10:29 AM 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 Gender Identity Not on file Sexual Orientation Not on file Obstetrics History Last Filed Vital Signs Vital Sign Reading Time Taken Comments Blood Pressure 125/91 10/04/2024 1:19 PM CROP NUTRITION SCIENTIST Pulse 101 10/04/2024 1:19 PM CROP NUTRITION SCIENTIST Temperature 36.7 C (98.1 F) 05/01/2024 7:42 AM CDT Respiratory Rate 18 05/01/2024 7:42 AM CDT Oxygen Saturation 97% 10/04/2024 1:19 PM CROP NUTRITION SCIENTIST Inhaled Oxygen Concentration - - Weight 89.8 kg (198 lb) 10/04/2024 1:19 PM CROP NUTRITION SCIENTIST Height 154.9 cm (5' 0.98) 04/30/2024 8:23 [...] 04/05/2021, 03/08/2021 Influenza Vaccine (#1) 2025 Insurance [facility] Advance Directives For more information, please contact: [phone] * Full Code (Latest Code Status on File) Date Activated Date Inactivated Comments 04/30/2024 1:01 AM 05/01/2024 3:54 PM Care Teams Wic Site Coordinator Relationship Specialty Start Date End Date Kareem Davidson MD PCP - General Family Practice 01/15/21 Vikram Yee MD [address] [place] [address] Surgeon Otolaryngology 04/10/21 Bipin Sequeira DO [address] [place] [address] [place] [phone] Medical Oncologist Medical Oncology 07/04/24 Charisse Herrmann MD [address] [place] [address] [id number] Radiation Oncologist Radiation Oncology 07/20/24
--- OUTSIDE RECORDS SUMMARY | 2025-02-10 04:38 | XMS_ITS | Clinical Summary ---
Author Organization [facility] Address [address] [place] [address] Care Team Providers Care Equipment Worker Name Role Phone Pancho Matos MD Primary Care Provider [phone] Allergies Active Allergy Reactions Criticality Noted Date [...] on file Legal Sex Female 1:11 PM SALES PLANNING MANAGER Gender Identity Not on file Sexual Orientation Not on file Last Filed Vital Signs Vital Sign Reading Time Taken Comments Blood Pressure 136/99 08/08/2023 11:28 AM SALES PLANNING MANAGER Pulse 98 08/08/2023 11:28 AM SALES PLANNING MANAGER Temperature 36.8 C (98.2 F) 08/08/2023 11:28 AM SALES PLANNING MANAGER Respiratory Rate 24 08/08/2023 4:00 AM SALES PLANNING MANAGER Oxygen Saturation 98% 08/08/2023 11:28 AM SALES PLANNING MANAGER Inhaled Oxygen Concentration - - Weight 92.1 kg (203 lb) 08/04/2023 6:00 AM SALES PLANNING MANAGER Height 154.9 cm (5' 1) 08/04/2023 6:00 AM SALES PLANNING MANAGER Body Mass Index 38.36 08/04/2023 6:00 AM SALES PLANNING MANAGER Plan of Treatment Health Maintenance Due Date [...] Lifestyle No Mahogany Danielson V, RN Insurance [facility] C/O PROVIDER SERVICES [place] [id number] Advance Directives * Full Code (Latest Code Status on File) Date Activated Date Inactivated Comments 08/07/2023 11:52 AM 08/08/2023 3:56 PM * Full Code Date Activated Date Inactivated Comments 11/05/2017 5:03 PM 11/06/2017 8:31 PM Care Teams Equipment Worker Relationship Specialty Start Date End Date Pancho Matos MD [address] [place] [address] PCP - General FAMILY PRACTICE 11/02/17
--- OUTSIDE RECORDS SUMMARY | 2025-02-10 04:38 | XMS_ITS ---
Author Organization [facility] [address] [facility] Address [address] [place] [address] Care Team Providers Care Financial Compliance Examiner Name Role Phone Kareem Davidson MD Primary Care Provider Vikram Yee MD Unavailable [phone] Bipin Sequeira DO Unavailable [phone] Charisse Herrmann MD Unavailable [phone] Active Problems Problem Noted Date Diagnosed [...]
--- OUTSIDE RECORDS SUMMARY | 2025-02-10 04:38 | XMS_ITS | Encounter Summary ---
Author Organization [facility] Healthcare Address [address] [place] [address] Care Team Providers Care Development Eng Name Role Phone Kareem Davidson MD Primary Care Provider Charisse Herrmann MD Unavailable [phone] Vincenzo Boone MD, Christos Unavailable [phone] Vikram Yee MD Unavailable [phone] Bipin Sequeira DO Unavailable [phone] Charisse Herrmann MD Unavailable [phone] Encounter Details Date Type Department Care Team (Late st Contact Info) Description 05/30/2024 Telephone [facility] Medical Office Building 2 Radiation Oncology [address] [place] [address] Charisse Herrmann MD [address] [place] [address] Social History Tobacco Use Types Packs/Day [...] on file 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 Gender Identity Not on file Sexual Orientation Not on file documented as of this encounter Plan of Treatment Not on file documented as of this encounter Visit Diagnoses Not on filedocumented in this encounter Care Teams Development Eng Relationship Specialty Start Date End Date Kareem Davidson MD PCP - General Family Practice 01/15/21 Charisse Herrmann MD Radiation Oncologist Radiation Oncology 01/15/2107/19 Christos Loya Jr., MD Medical Oncologist/Vice President Network Development Medical Oncology 04/10/21 07/03/24 [place] [address] [place] [address] [place], [place] [address] Surgeon Otolaryngology 04/10/21 Bipin Sequeira DO [address] [place] [address] [place] [id number] Medical Oncologist Medical Oncology 07/04/24 Charisse Herrmann MD [address] [place] [address] Radiation Oncologist Radiation Oncology 07/20/24 documented as of this encounter
--- OUTSIDE RECORDS SUMMARY | 2025-02-10 04:38 | XMS_ITS | Referral Summary ---
Author Organization [place] [id number] [facility] Address [address] [place] [address] Care Team Providers Care Candy Rolling Machine Operator Name Role Phone Kareem Davidson MD Primary Care Provider Vikram Yee MD Unavailable [phone] Bipin Sequeira DO Unavailable [phone] Charisse Herrmann MD Unavailable [phone] Allergies Active Allergy Reactions Criticality Noted Date Comments Other Swelling Medium 10/30/2020 Peanut Oil/peanut Butter Medications levothyroxine (SYNTHROID) 150 mcg tablet Take 1 tablet (150 mcg total) by mouth early childhood worker before breakfast 30 tablet 6 2 Active [...] on file Legal Sex Female 10:29 AM SHELTER DIRECTOR Gender Identity Not on file Sexual Orientation Not on file Last Filed Vital Signs Vital Sign Reading Time Taken Comments Blood Pressure 125/91 10/04/2024 1:19 PM SHELTER DIRECTOR Pulse 101 10/04/2024 1:19 PM SHELTER DIRECTOR Temperature 36.7 C (98.1 F) 05/01/2024 7:42 AM CDT Respiratory Rate 18 05/01/2024 7:42 AM CDT Oxygen Saturation 97% 10/04/2024 1:19 PM SHELTER DIRECTOR Inhaled Oxygen Concentration - - Weight 89.8 kg (198 lb) 10/04/2024 1:19 PM SHELTER DIRECTOR Height 154.9 cm (5' 0.98) 04/30/2024 8:23 AM CD T Body Mass Index 37.43 04/30/2024 8:23 AM CDT Plan of Treatment Not on file Insurance [employer] [facility] Advance Directives For more information, please contact: [phone] * Full Code (Latest Code Status on File) Date Activated Date Inactivated Comments 04/30/2024 1:01 AM 05/01/2024 3:54 PM Care Teams Candy Rolling Machine Operator Relationship Specialty Start Date End Date Kareem Davidson MD PCP - General Family Practice 01/15/21 Vikram Yee MD [address] [place] [address] Surgeon Otolaryngology 04/10/21 Bipin Sequeira DO [address] [facility] [address] [place] [address] Medical Oncologist Medical Oncology 07/04/24 Charisse Herrmann MD [address] [place] [address] Radiation Oncologist Radiation Oncology 07/20/24
--- OUTSIDE RECORDS SUMMARY | 2025-02-10 04:38 | XMS_ITS | Clinical Summary ---
Author Organization [facility] Address [address] [facility] [place] [address] Care Team Providers Care Patient Assessment Coordinator Name Role Phone A, Unknown Practice Primary Care Provider [phone] Source Comments [facility],non-owned Affiliates and Associated Physician Practices is amultiple site organization consisting of ambulatory clinics and hospital sitesin [place], [place], [place] and [place]. This disclosure is being madepursuant to the Care Everywhere program and may not contain all information available regarding this patient. Last updated 18.[facility] Allergies Active Allergy Reactions Criticality Noted Date [...] [facility] [address] [facility], [place] [phone] Eleazar Miller MD Reschedule Appointment 01/27/2025 Travel 12/09/2024 Travel 12/09/2024 Telephone [facility] [address] [place] [address] Eleazar Miller MD Appointment 12/08/2024 Telephone [facility] [address] [place] [phone] Lorenzo Burden MD Referral from Last 3 Months Social History Tobacco Use Types Packs/Day Years Used Date Smoking Tobacco: Never Assessed Comments Unknown Sex and Gender Information Value Date Recorded Sex Assigned at Not on file Legal Sex Female 7:55 AM PRESCRIPTION BENEFIT SPECIALIST Gender Identity Not on file Sexual Orientation [...] Description 04/11/2025 3:00 PM CDT Office Visit [facility] - ENT [address] [place] [phone] Eleazar Miller MD [address] [place] [address] [place] [address] Health Maintenance Due Date Last Done Comments [...] CDT) Sodium 142 137 - 145 mmol/L [facility] Potassium 3.3(L) 3.6 - 5.0 mmol/L [facility] Chloride 108(H) 98 - 107 mmol/L [facility] BUN 9 7 - 17 mg/dl [facility] Creatinine 0.74 0.52 - 1.04 mg/dl [facility] Glucose 83 65 - 105 mg/dl [facility] Calcium 9.4 8.4 - 10.2 mg/dl [facility] Alkaline Phosphatase 67 38 - 126 U/L [facility] AST 28 8 - 39 U/L [facility] Bilirubin Total 0.2 0.2 - 1.3 mg/dl [facility] Protein Total 8.1 6.3 - 8.2 gm/dl [facility] Albumin 4.6 3.9 - 5.0 gm/dl [facility] CO2 24 22 - 30 mmol/L [facility] ALT 10 9 - 52 U/L [facility] eGFR by MDRD 91 88 - 128 mL/min/1.7 3m2 [facility] Comment eGFR [facility] Comment: The eGFR does not apply to patients who are younger than 18 or older than 70. BLOOD SPECIMEN / Unknown 04/11/2009 10:14 PM CDT us Mary Faye DO LAB - CHEMISTRY ORDERABLES Fin al Result Performing Organization Address City/State/[facility] Co de Phone Number [facility] [address] [place] [address] from Last 3 Months or Most Recently Relevant to Health Maintenance Insurance MEDICAID - OUT OF [facility] Care Teams Patient Assessment Coordinator Relationship Specialty Start Date End Date A, Unknown Practice [address] [place] [phone] PCP - General 03/14/23
--- OUTSIDE RECORDS SUMMARY | 2025-02-10 04:38 | XMS_ITS | Clinical Summary ---
Author Organization [facility] Address [address], [facility] [address] [place] [address] Phone Care Team Providers Care Fitter/Welder Name Role Phone Hua, Bipin Carrie HONE[place]CUTT Primary Care Provider [phone] Allergies Active Allergy Reactions Criticality Noted Date [...] CDT Office Visit [facility] [address] [phone] Bipin Sequeira DO Thyroid cancer (HCC) (Primary Dx) 02/07/2025 12:45 PM CDT Lab [facility] [address] [phone] Lab, [facility] ([facility]); Pulmonary nodules; History of [...] AM CDT Lab [facility] [address] [phone] Lab, [facility] 04/11/2025 8:15 AM CDT Ancillary Procedure [facility] [address] [phone] 04/11/2025 8:30 AM CDT Ancillary Procedure [facility] [address] [phone] 04/11/2025 1:00 PM CDT Office Visit [facility] [address] [phone] Bipin Sequeira, DO [address] [place] [phone] Health Maintenance Due Date Last Done [...] WBC 7.1 4.0 - 10.0 10*3/uL [facility] HGB 14.2 11.2 - 15.7 g/dL [facility] HCT 42.7 34.1 - 44.9 % [facility] PLT 205 163 - 369 10*3/uL [facility] MPV 10.9 9.4 - 12.4 fL [facility] RBC 4.43 3.93 - 5.22 10*6/uL [facility] MCV 96(H) 79 - 95 fL [facility] MCH 32.1 25.6 - 32.2 pg [facility] MCHC 33.3 32.2 - 36.5 g/dL [facility] RDW 12.7 11.6 - 14.4 % [facility] Neutrophils % 59.8 36.0 - 66.0 % [facility] Lymphocytes % 25.5 19.0 - 40.0 % [facility] Monocytes % 6.0 4.1 - 12.1 % [facility] Eosinophils % 7.6(H) 0.0 - 3.5 % [facility] Basophils % 0.8 0.0 - 1.0 % [facility] Absolute Neutrophils 4.3 1.4 - 6.6 10*3/uL [facility] Absolute Lymphocytes 1.8 0.8 - 4.0 10*3/uL [facility] Absolute Monocytes 0.4 0.2 - 1.2 10*3/uL [facility] Absolute Eosinophils 0.5(H) 0.0 - 0.4 10*3/uL [facility] Absolute Basophils 0.1 0.0 - 0.1 10*3/uL [facility] 02/07/2025 12:5 1 PM CDT Bipin Sequeira DO LAB SEND OUTS Final Result Performing Organization Address [facility]/ZIP Co de Phone Number [facility] Cancer Care [address] [place] [address] [address], * THYROXINE (T4) FREE (02/07/2025 12:51 PM CDT) THYROXINE (T4), FREE, 1.09 0.61 - 1.12 ng/dL [facility] Comment: Specimens that contain high levels of Biotin >10 ng/mL may cause false high results for this method. Interpret results in light of the total clinical presentation of the patient. To minimize the interference of high levels of Biotin, it is recommended that patients discontinue taking Biotin 72 hours prior to testing. Blood 02/07/2025 12:5 1 PM CDT Narrative [facility] - 02/08/2025 2:57 PM CDT Is the patient taking Biotin supplement? No Release to patient->Immediate Bipin Sequeira DO CHEMISTRY ORDERABLES Final Res ult Performing Organization Address [facility]/ZIP Co de Phone Number [facility] Cancer Care [address] [address], * (ABNORMAL) THYROID STIMULATING HORMONE (TSH) (02/07/2025 12:51 PM CDT) TSH 0.17(L) 0.45 - 5.33 uIU/mL [facility] Blood 02/07/2025 12:5 1 PM CDT Narrative [facility] - 02/08/2025 2:57 PM CDT Release to patient->Immediate Bipin Sequeira DO CHEMISTRY ORDERABLES Final Res ult [facility] [address] [place] [address], * (ABNORMAL) CMP (COMPREHENSIVE METABOLIC PANEL) (02/07/2025 12:51 PM CDT) Glucose 155(H) 70 - 105 mg/dL [facility] Blood Urea Nitrogen 11 7 - 25 mg/dL [facility] Creatinine 0.6 0.6 - 1.2 mg/dL [facility] Sodium 142 136 - 145 mEq/L [facility] Potassium 4.0 3.5 - 5.1 mEq/L [facility] Chloride 105 98 - 107 mEq/L [facility] Bicarbonate 26 21 - 31 mEq/L [facility] Total Bilirubin 0.4 0.3 - 1.0 mg/dL [facility] Alk. Phosphatase 59 34 - 104 U/L [facility] Aspartate Aminotransferase 32 13 - 39 U/L [facility] Alanine Aminotransferase 38 7 - 52 U/L [facility] Total Protein 7.1 6.4 - 8.9 g/dL [facility] Albumin 4.7 3.5 - 5.7 g/dL [facility] Calcium 9.7 8.6 - 10.3 mg/dL [facility] Anion Gap 15.0 7.0 - 15.0 mEq/L [facility] Globulin 2.4 2.0 - 3.5 g/dL [facility] EGFR 110 >60 ml/min/1. 73m2 [facility] Comment: This eGFR is calculated using 2020 CKD-EPI Creatinine equation without race modifier based on the NKF-ASN task force recommendations Equation: fFKE=997*min(SCr/k,1)a*max(SCr/k,1)-1.200*0.9938Age*1.012 (if female), where SCr is serum creatinine, k is 0.7 for females and 0.9 for males, and a is -0.241 for females and -0.302 for males Blood 02/07/2025 12:5 1 PM CDT Narrative [facility] - 02/07/2025 1:50 PM CDT Release to patient->Immediate IS THE PATIENT REQUIRED TO BE FASTING FOR 8 HOURS?->No us Bipin Sequeira DO CHEMISTRY ORDERABLES Final Res ult [facility] [address] [place] [address], [place] [phone] from Last 3 Months Insurance MEDICAID [place] Care Teams Fitter/Welder Relationship Specialty Start Date End Date Bipin Sequeira DO [address] [place] [phone] PCP - General Oncology 11/21/22
--- OUTSIDE RECORDS SUMMARY | 2025-02-10 04:38 | XMS_ITS | Encounter Summary ---
Author Organization [facility] Address [address] [facility] [place] [address] Care Team Providers Care Machine Tool Builder Name Role Phone A, Unknown Practice Primary Care Provider [phone] Reason for Visit * Reason Onset Date Comments Reschedule Appointment 02/09/2025 Encounter Details Date Type Department Care Team (Late st Contact Info) Description 02/09/2025 Telephone [facility] [address] [place] [phone] Eleazar Miller MD [address] [place] [address] DEPT OF OTOLARYNGOLOGY [place], [place] [phone] Reschedule Appointment Social History Tobacco Use Types Packs/Day Years Used Date Smoking Tobacco: Never Assessed Comments Unknown Sex and Gender Information Value Date Recorded Sex Assigned at Not on file 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 Aquino 04/11 to a later time or to another day after 3:00pm. [phone] documented in this encounter Plan of Treatment Upcoming Encounters Date Type Department Care Team (Late st Contact Info) Description 04/11/2025 3:00 PM CDT Office Visit [facility] [address] [place] [phone] Eleazar Miller MD [address] [place] [address] DEPT [place] [address] documented as of this encounter Visit Diagnoses Not on filedocumented in this encounter Care Teams Machine Tool Builder Relationship Specialty Start Date End Date A, Unknown Practice [address] [place] [address] PCP - General 03/14/23 documented as of this encounter
--- OUTSIDE RECORDS SUMMARY | 2025-02-10 04:38 | XMS_ITS | Encounter Summary ---
Author Organization [facility] Address [address] [place] [address] Phone Care Team Providers Care Payroll Secretary Name Role Phone Bipin Sequeira DO Primary Care Provider [phone] Reason for Visit * Reason Comments Medication Refill Encounter Details Date Type Department Care Team (Late st Contact Info) Description 08/18/2024 Refill [facility] [address] [phone] Bipin Sequeira DO [address] [place] [phone] Medication Refill Social History Tobacco Use [...] AM CDT Lab [facility] [address] [phone] Lab, [facility] 04/11/2025 8:15 AM CDT Ancillary Procedure [facility] [address] [phone] 04/11/2025 8:30 AM CDT Ancillary Procedure [facility] [address] [phone] 04/11/2025 1:00 PM CDT Office Visit [facility] [address] [phone] Bipin Sequeira DO [address] [place] [phone] documented as of this encounter Visit Diagnoses Not on filedocumented in this encounter Care Teams Payroll Secretary Relationship Specialty Start Date End Date Bipin Sequeira DO [address] [place] [phone] PCP - General Oncology 11/21/22 documented as of this encounter
[2025-02-10] MEDS: IPRATROPIUM BR 0.02% INH SOLN 0.5 MG/2.5 ML VIAL 2 MG INHALATION (05:03)
[2025-02-10] MEDS: ALBUTEROL SULFATE NEB 2.5 MG/3 ML INH 10 MG INHALATION (05:03)
[2025-02-10 05:04] VITALS: PULSE 89
[2025-02-10 05:05] LABS: Hematocrit 42.1 % (37.0-47.0); Hemoglobin 13.7 g/dL (12.0-15.0); Immature Granulocyte Percent A 0.5 % (0-0.5); Lymphocytes Absolute Auto 1.80 K/mm3 (0.9-3.2); Mean Corpuscular HGB Conc 32.5 g/dl (32-36); Mean Corpuscular Hemoglobin 31.6 pg (26-34); Mean Corpuscular Volume 97.2 fl (80-100); Nucleated Red Blood Cells Absolute Auto 0.000 K/mm3 (0.0-0.012); Nucleated Red Blood Cells Perc 0.0 % (0.0-0.2); Platelet Count Result 195 k/mm3 (150-375); Red Blood Count 4.33 M/mm3 (4.2-5.4); White Blood Count 6.2 K/mm3 (4.5-10.0)
[2025-02-10 05:31] LABS: Alanine Aminotransferase 45 U/L (6-35); Albumin Level 4.2 g/dL (3.5-5.1); Alkaline Phosphatase 57 U/L (38-126); Anion Gap 6 mmol/L (4-12); Aspartate Amino Transferase 42 U/L (14-36); Bilirubin,Total 0.3 mg/dL (0.2-1.3); Blood Urea Nitrogen 12 mg/dL (7-17); Calcium 9.3 mg/dL (8.4-10.2); Carbon Dioxide 27 mmol/L (22-30); Chloride 107 mmol/L (98-107); Estimated Glomerular Filt Rate > 60; Glucose 104 mg/dL (65-110); Magnesium 1.9 mg/dL (1.6-2.3); Potassium 3.9 mmol/L (3.4-5.0); Sodium 140 mmol/L (137-145); Total Protein 7.5 g/dL (6.3-8.2)
[2025-02-10 05:40] LABS: Influenza A QL RT-PCR Negative (Negative); Influenza B QL RT-PCR Negative (Negative); RSV RNA, RT-PCR Negative (Negative); SARS-CoV-2 RNA PCR Negative (Negative)
--- NOTE | 2025-02-10 05:42 | ED_ITS ---
HPI - General Adult General Chief complaint: Shortness of Breath/Dyspnea Stated complaint: sob Time Seen by Provider: 02/10/25 04:15 History of Present Illness HPI narrative: Patient is a 49-year-old female who presents to the emergency department this evening complaining of shortness of breath. Patient states that she woke up and is could not catch her breath. She does have bilateral audible wheezing. Denies any history of COPD or asthma but states that she does have extensive smoking history. Denies any active chest pain, any recent illness, fevers or chills. No sick contacts at home. No additional symptoms or concerns at this time. Related Data Allergies Allergy/AdvReac Type Severity Reaction Status Date / Time peanut Allergy Severe throat Verified 02/10/25 04:10 swelling, difficulty breathing Review of Systems 2 Review of Systems: All systems are reviewed and are negative unless stated otherwise in the HPI. [facility] Past Medical History Medical History Missed x4 x1 Thyroid cancer Pulmonary nodules/lesions, multiple Hypothyroidism Pulmonary nodules Intramural uterine fibroid Anemia Anxiety Thyroid cancer (~2017) thyroidectomy Surgical History Surgical History History of robot-assisted laparoscopic hysterectomy History of x1 H/O dilation and curettage H/O thyroidectomy 09/2019 Status post embolization of uterine artery History of tubal ligation Family History Family History Other Hypertension Social History Social History Years smoked: 24 Smoking status: Current some day smoker Tobacco type: cigarettes Alcohol intake: current Substance use: unknown Exam 2 Narrative: General: Alert, awake, afebrile, in no acute distress. HEENT: PERRL, no rhinorrhea, no post nasal drip, oropharynx clear. Neck: Trachea midline, no JVD, no lymphadenopathy. Cardiovascular: Regular rate and rhythm, no murmurs, rubs or gallops, no peripheral edema. Respiratory: Diffuse bilateral wheezing, no tachypnea, no respiratory distress. Abdomen: Soft, nontender, nondistended, no rebound, no guarding, no peritoneal signs. Musculoskeletal: No joint swelling or deformity, normal muscle tone. Skin: No rashes or petechia, no signs of infection. Psychiatric: Alert and oriented, normal behavior and judgment for situation. Neurological: Alert and oriented to person, place, and time. Follows all commands. No focal deficits, speech is clear and fluent. Course Vital Signs Vital signs: Vital Signs Temperature 98.7 F 02/10/25 04:15 Pulse Rate 89 02/10/25 04:15 Respiratory Rate 17 02/10/25 04:15 Blood Pressure 126/84 02/10/25 04:15 Pulse Oximetry 100 02/10/25 04:15 Oxygen Delivery Room Air 02/10/25 04:15 Temperature 98.7 F 02/10/25 04:15 Pulse Rate 89 02/10/25 05:04 Respiratory Rate 17 02/10/25 04:15 Blood Pressure 126/84 02/10/25 04:15 Pulse Oximetry 100 02/10/25 04:15 Oxygen Delivery Room Air 02/10/25 05:03 Medical Decision Making [facility] Narrative Medical decision making narrative: The patient was evaluated by myself in the emergency department. History is obtained from patient who is an independent historian and physical exam was performed. External medical records were reviewed at this time. IV was established and pertinent tests were ordered. Patient was administered an hour long DuoNeb breathing treatment and 125 mg of IV Solu-Medrol. Laboratory results obtained revealing no acute process. Imaging studies obtained included CXR which was independently interpreted by me revealing no acute cardiopulmonary process, which is pending final radiology interpretation. Differential diagnosis considerations include COPD/asthma/reactive airway disease, infectious process such as pneumonia, acute viral syndrome. Comorbidities impacting this visit include extensive tobacco history. I have evaluated and discussed social determinants of health with the patient that could potentially impact subsequent diagnosis and treatment plans. On repeat assessment of the patient, reevaluation revealed that the patient is doing well and is in no acute distress. Patient symptoms have improved since she arrived to our emergency department. Repeat vital signs were all reviewed and noted to be stable. Differential diagnosis and treatment plan were discussed with the patient at bedside. Patient agrees with discussion and after shared medical decision making agrees with discharge. All questions were answered to the patient's satisfaction. Patient will follow up with her PCP in 3-5 days. A script for Medrol Dosepak was sent to patient's pharmacy to take as prescribed. Patient was provided with strict return precautions and instructed to return to the emergency department if any new or worsening symptoms develop. The patient was discharged in stable condition. Vital Signs Vital Signs: Vital Signs Temperature 98.7 F 02/10/25 04:15 Pulse Rate 89 02/10/25 04:15 Respiratory Rate 17 02/10/25 04:15 Blood Pressure 126/84 02/10/25 04:15 Pulse Oximetry 100 02/10/25 04:15 Oxygen Delivery Room Air 02/10/25 04:15 Temperature 98.7 F 02/10/25 04:15 Pulse Rate 89 02/10/25 05:04 Respiratory Rate 17 02/10/25 04:15 Blood Pressure 126/84 02/10/25 04:15 Pulse Oximetry 100 02/10/25 04:15 Oxygen Delivery Room Air 02/10/25 05:03 Lab Data 02/10/25 04:55 02/10/25 04:55 Labs: Lab Results 02/10/25 Range/Units 04:55 WBC 6.2 (4.5-10.0) K/mm3 RBC 4.33 (4.2-5.4) M/mm3 Hgb 13.7 (12.0-15.0) g/dL Hct 42.1 (37.0-47.0) % MCV 97.2 (80-100) fl MCH 31.6 (26-34) pg MCHC 32.5 (32-36) g/dl RDW 12.5 (11.5-14.5) % Plt Count 195 (150-375) k/mm3 MPV 10.9 H (7.4-10.4) fl Immature Gran % (Auto) 0.5 (0-0.5) % Neut % (Auto) 49.2 (45.5-73.1) % Lymph % (Auto) 29.1 (18.3-44.2) % Jefferson % (Auto) 11.0 H (2.6-8.5) % Eos % (Auto) 9.4 H (0-4.4) % Baso % (Auto) 0.8 (0.2-1.2) % Lymph # (Auto) 1.80 (0.9-3.2) K/mm3 Jefferson # (Auto) 0.7 H (0.1-0.6) K/mm3 Eos # (Auto) 0.6 H (0-0.3) K/mm3 Baso # (Auto) 0.1 (0.0-0.1) K/mm3 Abs Immat Gran (auto) 0.03 (0.00-0.031) K/mm3 Absolute Neuts (auto) 3.0 (1.3-6.7) K/mm3 Absolute Nucleated RBC 0.000 (0.0-0.012) K/mm3 Nucleated RBC % 0.0 (0.0-0.2) % Sodium 140 (137-145) mmol/L Potassium 3.9 (3.4-5.0) mmol/L Chloride 107 (98-107) mmol/L Carbon Dioxide 27 (22-30) mmol/L Anion Gap 6 (4-12) mmol/L BUN 12 (7-17) mg/dL Creatinine 0.71 (0.7-1.0) mg/dL Estim Creat Clear Calc Not Reportable Estimated GFR > 60 (59 - ) Glucose 104 (65-110) mg/dL Calcium 9.3 (8.4-10.2) mg/dL Magnesium 1.9 (1.6-2.3) mg/dL Total Bilirubin 0.3 (0.2-1.3) mg/dL AST 42 H (14-36) U/L ALT 45 H (6-35) U/L Alkaline Phosphatase 57 (38-126) U/L Total Protein 7.5 (6.3-8.2) g/dL Albumin 4.2 (3.5-5.1) g/dL Influenza A (RT-PCR) Negative (Negative) Influenza B (RT-PCR) Negative (Negative) RSV (RT-PCR) Negative (Negative) SARS-CoV-2 RNA (RT-PCR) Negative (Negative) Discharge Plan Discharge Clinical Impression: Shortness of breath, Diffuse wheezing Patient Disposition: Home Condition: Improved Instructions: Antibiotic Form, Wheezing (ED) Additional Instructions: Please follow-up with your family doctor within the next 3-5 days. Return emergency department any new or worsening symptoms develop. Take the prescribed a steroid Dosepak as instructed. Patient Language: Italian Prescriptions: New methylprednisolone [Medrol (Rey)] 4 mg tablets,dose pack See Rx Instructions .ROUTE .COMPLEX Qty: 21 0RF Rx Instructions: for 6 days No Action ondansetron 4 mg tablet,disintegrating 4 mg PO Q6H PRN (Reason: nausea and vomiting) Qty: 14 0RF levothyroxine 175 mcg tablet 175 mcg PO DAILY Qty: 30 3RF Follow-up/Referrals: Ian Davidson MD [Primary Care Provider] - 3 Days Time of Disposition: 05:47
== END 2025-02-10 06:37 | disposition home or self-care (01) ==
PROVIDERS: Emergency Provider Emergency Medicine; PCP Family Medicine
DX: R06.02 Shortness of breath (principal); R06.2 Wheezing; Z20.822 Contact with and (suspected) exposure to COVID-19; E89.0 Postprocedural hypothyroidism; F17.210 Nicotine dependence, cigarettes, uncomplicated; Z85.850 Personal history of malignant neoplasm of thyroid; Z86.2 Personal history of diseases of the blood and blood-forming organs and certain disorders involving the immune mechanism; Z90.710 Acquired absence of both cervix and uterus; Z79.899 Other long term (current) drug therapy
CPT/HCPCS: 36415; 71045; 80053; 83735; 85025; 87637; 96374; 99284; J2919

== ENCOUNTER 2025-05-25 16:18 | Outpatient (CLI) | payer OTHER, SELFPAY ==
--- OUTSIDE RECORDS SUMMARY | 2025-05-25 16:47 | XMS_ITS | Clinical Summary ---
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 Gender Identity Not on file Sexual Orientation Not on file Last Filed Vital Signs Vital Sign Reading Time Taken Comments Blood Pressure 136/99 08/08/2023 11:28 AM LICENSED JOURNEYMAN ELECTRICIAN Pulse 98 08/08/2023 11:28 AM LICENSED JOURNEYMAN ELECTRICIAN Temperature 36.8 C (98.2 F) 08/08/2023 11:28 AM LICENSED JOURNEYMAN ELECTRICIAN Respiratory Rate 24 08/08/2023 4:00 AM LICENSED JOURNEYMAN ELECTRICIAN Oxygen Saturation 98% 08/08/2023 11:28 AM LICENSED JOURNEYMAN ELECTRICIAN Inhaled Oxygen Concentration - - Weight 92.1 kg (203 lb) 08/04/2023 6:00 AM LICENSED JOURNEYMAN ELECTRICIAN Height 154.9 cm (5' 1) 08/04/2023 6:00 AM LICENSED JOURNEYMAN ELECTRICIAN Body Mass Index 38.36 08/04/2023 6:00 AM LICENSED JOURNEYMAN ELECTRICIAN Plan of Treatment Health Maintenance Due Date [...] Mammogram Screening 2016 COVID-19 Vaccine (3 - 2024-2 6 season) 2025 04/05/2021, 03/08/2021 Influenza Adult (#1) 2025 Hepatitis A Vaccines Aged Out No long er eligible based on patient's age to complete this topic Meningococcal B Vaccine Aged Out No l [...] Lifestyle No Mahogany Danielson V, RN Insurance [facility] MEDICAID C/O PROVIDER SERVICES [place] [id number] Advance Directives * Full Code (Latest Code Status on File) Date Activated Date Inactivated Comments 08/07/2023 11:52 AM 08/08/2023 3:56 PM * Full Code Date Activated Date Inactivated Comments 11/05/2017 5:03 PM 11/06/2017 8:31 PM Care Teams Plywood Patcher Relationship Specialty Start Date End Date Pancho Matos MD [address] [place] [address] PCP - General FAMILY PRACTICE 11/02/17
--- OUTSIDE RECORDS SUMMARY | 2025-05-25 16:47 | XMS_ITS | Encounter Summary ---
Author Organization [facility] Address [address] [place] [address] Care Team Providers Care Consumer Banker Name Role Phone Kareem Davidson MD Primary Care Provider Charisse Herrmann MD Unavailable [phone] Vincenzo Boone MD, Christos Unavailable [phone] Vikram Yee MD Unavailable [phone] Bipin Sequeira DO Unavailable [phone] Charisse Herrmann MD Unavailable [phone] Encounter Details Date Type Department Care Team (Late st Contact Info) Description 05/30/2024 Telephone [facility] Medical Office Building 2 Radiation Oncology [address] [place] [address] Charisse Herrmann MD [address] [place] [address] Social History Tobacco Use Types Packs/Day [...] on file 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 Gender Identity Not on file Sexual Orientation Not on file documented as of this encounter Plan of Treatment Not on file documented as of this encounter Visit Diagnoses Not on filedocumented in this encounter Care Teams Consumer Banker Relationship Specialty Start Date End Date Kareem Davidson MD PCP - General Family Practice 01/15/21 Charisse Herrmann MD Radiation Oncologist Radiation Oncology 01/15/2107/19 Christos Loya Jr., MD Medical Oncologist/Skein Straightener Medical Oncology 04/10/21 07/03/24 [place] [address] [place] [address] [place], [place] [address] Surgeon Otolaryngology 04/10/21 Bipin Sequeira DO [address] [place] [address] [place] [address] Medical Oncologist Medical Oncology 07/04/24 Charisse Herrmann MD [address] [place] [address] Radiation Oncologist Radiation Oncology 07/20/24 documented as of this encounter
--- OUTSIDE RECORDS SUMMARY | 2025-05-25 16:47 | XMS_ITS | Clinical Summary ---
Author Organization [facility] Address [address] [facility] [place] [address] Care Team Providers Care Tilesetter Name Role Phone Keyla Gunn PA-C Primary Care Provider [phone] Source Comments [facility],non-owned Affiliates and Associated Physician Practices is amultiple site organization consisting of ambulatory clinics and hospital sitesin [place], [place], [place] and [place]. This disclosure is being madepursuant to the Care Everywhere program and may not contain all information available regarding this patient. 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 Alwaysverify current medications with the patient. levothyroxine (Synthroid) 175 MCG tablet Take 1 (one) tablet by mouth once daily Active levothyroxine (Synthroid) 200 MCG tablet Take 1 (one) tablet by mouth daily before breakfast Active Active Problems Problem Noted Date Diagnosed Date Mass of pelvis 03/23/2023 Encounters Date Type Department Care Team Description 05/18/2025 8:00 AM CDT Office Visit [facility] - [facility] [address] [place] [phone] Kalli Martin, BOTANY PROFESSOR Chronic cough (Primary Dx); Other dysphagia 05/18/2025 Travel 05/10/2025 Telephone [facility] [place] [address] Kalli Martin SLP Speech Therapy 05/04/2025 3:30 PM CDT Office Visit [facility] [place] [address] Kalli Martin SLP Chronic cough (Primary Dx); Other dysphagia 05/04/2025 Travel 04/28/2025 Travel 04/26/2025 Telephone [facility] [address] [place] [phone] Romina Masters Appointment 04/20/2025 2:30 PM CDT [facility] [address] [place] [phone] Eleazar Miller MD Schmiedeskamp, Kailin, TORI Other dysphagia (Primary Dx); Chronic cough 04/20/2025 2:16 PM CDT - 04/20/2025 11:59 PM CDT Hospital Encounter [facility] [address] [place] [address] Eleazar Miller MD Discharge Disposition: Home or Self Care 04/19/2025 Travel 04/13/2025 Telephone [facility] [address], [address] [phone] Kalli Martin SLP Appointment 04/11/2025 3:00 PM CDT Office Visit [facility] - [facility] [address] [place] [phone] Eleazar Miller MD Oropharyngeal dysphagia (Primary Dx); Obstructive sleep apnea; Tonsillar hypertrophy 04/11/2025 Travel from Last 3 Months Immunizations Immunization Administration Dates Next Due Covid Moderna booster monovalent 6y-11yr 0.5ml 0 04/05/2021,03/08/2021 Social History Tobacco Use Types Packs/Day Years Used Date Smoking Tobacco: Some Days Cigarettes Smokeless Tobacco: Never Tobacco Cessation:Ready to Q uit: Not Asked; Counseling Given: Not Answered Alcohol Use Standard Drinks/Week Comments Yes 0 (1 standard drink = 0.6 oz pur e alcohol) social Comments Unknown Sex and Gender Information Value Date Recorded Sex Assigned at Not on file Legal Sex Female 7:55 AM TECHNICAL SERVICES REP Gender Identity Not on file Sexual Orientation Not on file Last Filed Vital Signs Vital Sign Reading Time Taken Comments Blood Pressure 124/87 04/11/2025 2:58 PM CDT Pulse 84 04/11/2025 2:58 PM CDT Temperature 36.6 C (97.8 F) 03/23/2023 2:24 PM CDT Respiratory Rate - - Oxygen Saturation 95% 03/23/2023 2:24 PM CDT Inhaled Oxygen Concentration - - Weight 93 kg (205 lb) 04/11/2025 2:58 PM CDT Height 154.9 cm (5' 1) 04/11/2025 2:58 PM CDT Body Mass Index 38.73 04/11/2025 2:58 PM CDT Plan of Treatment Upcoming Encounters Date Type Department Care Team (Late st Contact Info) Description 07/25/2025 2:30 PM TECHNICAL SERVICES REP Office Visit [facility] [address] [place] [phone] Eleazar Miller MD [facility] [facility] [address] [place] [address] 09/07/2025 8:20 AM TECHNICAL SERVICES REP Office Visit [facility] - [facility] [address] [facility] [address] [place] [address] Almaz Esparza APNP-RESIDENTIAL COUNSELOR [address] [facility] [address] [place] [address] Health Maintenance Due Date Last Done Comments COLOGUARD (AGES 45-75) - COL ON CA SCREENING 1976 COLON MONITORING 1976 COLONOSCOPY [...] of 3 - 19+ 3-dose series) 1995 PNEUMOCOCCAL VACCINE (1 of 2 - PCV) 1995 PAP SMEAR 1997 DEPRESSION SCREENING 08/03/2024 COVID-19 VACCINE (3 - 2024-2 6 season) 2025 04/05/2021, 03/08/2021 INFLUENZA VACCINE (#1) 2025 SCREENING FOR DIABETES 04/11/2025 04/11/2009 ZOSTER VACCINE (1 of 2) 2026 HIB VACCINE Aged Out No longer eligi ble based on patient's age to complete this topic HPV VACCINE Aged Out No longer eligi ble based on patient's age to complete this topic MENINGOCOCCAL (Group B) VACCINE SHARED DECISION-MAKING Aged Out No longer eligible based on patient's age to complete this topic MENINGOCOCCAL GROUPS A/C/Y/W VACCINE Aged Out No longer eligible b ased on patient's age to complete this topic Procedures Procedure Name Priority Date/Time Associated Diagnosis Comments FL SWALLOWING FUNCTION STUDY Routine 04/20/2025 3:14 PM CDT Oropharyngeal dysphagia NE LARYNGOSCOPY,FLEX FIBER,DIAGNOSTIC Routine 04/11/2025 6:19 PM CDT Oropharyngeal dysphagia COMPREHENSIVE METABOLIC PANEL STAT 04/11/2009 10:14 PM CDT Noninflam Dis Vagina NEC from Last 3 Months or Most Recently Relevant to Health Maintenance Results * FL Swallowing Function Study (04/20/2025 3:14 PM CDT) Anatomical Region Laterality Modality Chest Digital Radiogra phy 04/21/2025 11:5 2 AM CDT Narrative 04/24/2025 10:27 AM CDT PROCEDURE: FL SWALLOWING FUNCTION STUDY, DATE/TIME OF EXAM: 04/20/2025 3:20 PM, LOCATION [facility] INDICATION: R13.12: Oropharyngeal dysphagia ADDITIONAL CLINICAL INFORMATION: Ordering Provider Reason For Exam: Technologist Note: Additional: COMPARISON: None. FLUOROSCOPY TIME: 2.97 minutes TECHNIQUE: Modified barium swallow fluoroscopy performed in conjunction with speech pathology staff. The speech pathologist administered varying thickness barium liquids and solids under direct Cine fluoroscopy. FINDINGS/IMPRESSION: Fluoroscopic assistance was provided for a modified barium swallow test performed by Speech Therapy. Please see the Speech Therapy report for details. Report dictated by Jose Valiente MD (administrative resident). > Dictated by Operating Engineer Apprentice I, Franchesca Hdez MD have personally reviewed and interpreted this examination/study. > Interpreting Provider: Franchesca Hdez MD on 04/24/2025 10:27 AM Procedure Note Franchesca Hdez MD - 04/24/2025 PROCEDURE: FL SWALLOWING FUNCTION STUDY, DATE/TIME OF EXAM: 04/20/2025 3:20 PM, LOCATION [facility] INDICATION: R13.12: Oropharyngeal dysphagia ADDITIONAL CLINICAL INFORMATION: Ordering Provider Reason For Exam: Technologist Note: Additional: COMPARISON: None. FLUOROSCOPY TIME: 2.97 minutes TECHNIQUE: Modified barium swallow fluoroscopy performed in conjunction with speech pathology staff. The speech pathologist administered varying thickness barium liquids and solids under direct Cine fluoroscopy. FINDINGS/IMPRESSION: Fluoroscopic assistance was provided for a modified barium swallow test performed by Speech Therapy. Please see the Speech Therapy report for details. Report dictated by Jose Valiente MD (administrative resident). > Dictated by Operating Engineer Apprentice IFranchesca MD have personally reviewed and interpreted this examination/study. > Interpreting Provider: Franchesca Hdez MD on 04/24/2025 10:27 AM Eleazar Miller MD FLUOROSCOPY ORDERABLES Final Result * NE LARYNGOSCOPY,FLEX FIBER,DIAGNOSTIC (04/11/2025 6:19 PM CDT) Narrative Eleazar Miller MD - 04/11/2025 6:19 PM CDT Eleazar Miller MD 04/11/2025 6:23 PM Procedure Note Endoscopy Type: Laryngoscopy without stroboscopy [id number] Endoscope: Flexible 4mm Scope Anesthesia: Lidocaine 2% and Neosynephrine 1/2% (nasal) Procedure Details: The patient was sitting upright in a chair with the head in a slightly anterior sniffing position. The topical anesthesia was administered and then adequate time was allowed for an anesthetic effect. The endoscope was passed thru the nasal cavity with the tongue retracted anteriorly. The tip of the endoscope was positioned in the oropharynx which allowed a complete view of the base of tongue, vallecula, pyriform recesses, epiglottis, bilateral true and false vocal folds, the interarytenoid and post cricoid region, and the immediate subglottis. Findings: Nasal cavity is clear there is no significant obstruction the nasopharynx is open the tonsils are 3+ and occupy the lateral oropharyngeal space. The base of tongue is mildly enlarged there is chronic low-grade edema to the mucosa of the supraglottic larynx and the postcricoid mucosa. The right vocal cord is immobile. The left vocal cord moves and approximates it well without evidence of significant gap when phonating. There is no pooling in the piriforms. The posterior airway space is narrowed. Condition: Stable. Patient tolerated procedure well. Complications: None I was present for the entirety of the procedure. us Eleazar Miller MD PROCEDURE/MINOR SURGICAL ORD ERABLES Final Result * (ABNORMAL) COMPREHENSIVE METABOLIC PANEL (04/11/2009 10:14 PM CDT) Sodium 142 137 - 145 mmol/L [facility] Potassium 3.3(L) 3.6 - 5.0 mmol/L [facility] Chloride 108(H) 98 - 107 mmol/L [facility] BUN 9 7 - 17 mg/dl [facility] Creatinine 0.74 0.52 - 1.04 mg/dl [facility] Glucose 83 65 - 105 mg/dl [facility] Calcium 9.4 8.4 - 10.2 mg/dl [facility] Alkaline Phosphatase 67 38 - 126 U/L [facility] AST 28 8 - 39 U/L [facility] Bilirubin Total 0.2 0.2 - 1.3 mg/dl [facility] Protein Total 8.1 6.3 - 8.2 gm/dl [facility] Albumin 4.6 3.9 - 5.0 gm/dl [facility] CO2 24 22 - 30 mmol/L [facility] ALT 10 9 - 52 U/L [facility] eGFR by MDRD 91 88 - 128 mL/min/1.7 3m2 [facility] Comment eGFR [facility] Comment: The eGFR does not apply to patients who are younger than 18 or older than 70. BLOOD SPECIMEN / Unknown 04/11/2009 10:14 PM CDT us Mary Faye DO LAB - CHEMISTRY ORDERABLES Fin al Result [facility] [address] [place] [address] from Last 3 Months or Most Recently Relevant to Health Maintenance Insurance [facility] Care Teams Tilesetter Relationship Specialty Start Date End Date Keyla Gunn PA-C [address] [place] [phone] PCP - General Physician Tongue Lining Stitcher 04/05/25
--- OUTSIDE RECORDS SUMMARY | 2025-05-25 16:47 | XMS_ITS | Clinical Summary ---
Author Organization [facility] [address] [facility] Address [address] [place] [address] Care Team Providers Care Office Support Clerk Name Role Phone Kareem Davidson MD Primary Care Provider Vikram Yee MD Unavailable [phone] Bipin Sequeira DO Unavailable [phone] Charisse Herrmann MD Unavailable [phone] Allergies Active Allergy Reactions Criticality Noted Date Comments Other Swelling Medium 10/30/2020 Peanut Oil/peanut Butter Medications levothyroxine (SYNTHROID) 150 mcg tablet Take 1 tablet (150 mcg total) by mouth design maker before breakfast 30 tablet 6 2 Active levothyroxine (SYNTHROID) 200 mcg tablet Take 1 [...] Menorrhagia 03/17/2013 Leiomyoma of uterus, unspecified 02/24/2013 Encounters Date Type Department Care Team Description 04/06/2025 4:00 PM CDT Office Visit [facility] Medical Office Building 2 Radiation Oncology [address] [place] [address] Neelam Hyatt, PA Thyroid cancer (HCC) (Primary Dx); History of radioactive iodine thyroid ablation from Last 3 Months Immunizations Immunization Administration Dates Next Due Rho (D) Immune Globulin, IV or IM 03/22/2016 Surgical History Surgery Date Site/Laterality Comments WI DILATION & CURETTAGE DX&/ THER NONOBSTETRIC Dilation [...] on file Legal Sex Female 10:29 AM TOLL GATE TENDER Gender Identity Not on file Sexual Orientation Not on file Obstetrics History Last Filed Vital Signs Vital Sign Reading Time Taken Comments Blood Pressure 125/87 04/06/2025 3:52 PM CDT Pulse 94 04/06/2025 3:52 PM CDT Temperature 36.7 C (98.1 F) 05/01/2024 7:42 AM CDT Respiratory Rate 18 05/01/2024 7:42 AM CDT Oxygen Saturation 98% 04/06/2025 3:52 PM CDT Inhaled Oxygen Concentration - - Weight 93.5 kg (206 lb 3.2 oz) 04/06/2025 3:52 P M CDT Height 154.9 cm (5' 0.98) 04/30/2024 8:23 AM CD T Body Mass Index 38.98 04/30/2024 8:23 AM CDT Plan of Treatment [...] 04/05/2021, 03/08/2021 Influenza Vaccine (#1) 2025 Insurance SPO OOS [facility] CIG [facility] Advance Directives For more information, please contact: [phone] * Full Code (Latest Code Status on File) Date Activated Date Inactivated Comments 04/30/2024 1:01 AM 05/01/2024 3:54 PM Care Teams Office Support Clerk Relationship Specialty Start Date End Date Kareem Davidson MD PCP - General Family Practice 01/15/21 Vikram Yee MD [address] [place] [id number] Surgeon Otolaryngology 04/10/21 Bipin Sequeira DO [address] [place] [address] [place] [address] Medical Oncologist Medical Oncology 07/04/24 Charisse Herrmann MD [address] [place] [address] Radiation Oncologist Radiation Oncology 07/20/24
--- OUTSIDE RECORDS SUMMARY | 2025-05-25 16:47 | XMS_ITS | Clinical Summary ---
Author Organization [facility] Address [address] [place] [address] Phone Care Team Providers Care Jewel Hole Finish Opener Name Role Phone Bipin Sequeira DO Primary Care Provider [phone] Allergies Active Allergy Reactions Criticality Noted Date Comments Other-Environmental Allergen (Not Found In Search) Swelling Medium 10/30/2020 Peanut Oil/peanut Butter Medications levothyroxine (SYNTHROID) 150 MCG TabletIndicatio ns:Thyroid cancer Take 1 Tablet by mouth daily. 90 Tablet 1 08/19/2024 Active albuterol 108 (90 Base) MCG/ACT Aerosol Solution TAKE 1-2 INHALATION(S) BY MOUTH EVERY 4 HOURS NEEDED FOR WHEEZING 11/30/2024 Active levothyroxine (SYNTHROID) 200 MCG Tablet Take 1 Tablet by mouth daily. 90 Tablet 1 04/12/2025 Active Active Problems Problem Noted Date Diagnosed Date Elevated blood pressure reading 09/06/2024 History of radioactive iodine thyroid ablation 0 04/09/2021 Multiple lung nodules 10/25/2020 Thyroid cancer 06/18/2020 Leiomyoma of uterus, unspecified 02/24/2013 Encounters Date Type Department Care Team Description 04/12/2025 Results Follow-Up [facility] [address] [place] [address] Bipin Sequeira, DO THYROXINE (T4) FREE, THYROID STIMULATING HORMONE (TSH), CMP (COMPREHENSIVE METABOLIC PANEL), CBC WITH AUTO DIFF [place] 04/11/2025 9:15 AM CDT Office Visit [facility] [address] [phone] Bipin Sequeira DO Thyroid cancer (HCC) (Primary Dx) 04/11/2025 8:30 AM CDT Ancillary Procedure [facility] [address] [address] Thyroid cancer (HCC) 04/11/2025 8:15 AM CDT Ancillary Procedure [facility] [address] [address] Thyroid cancer (HCC) 04/11/2025 8:00 AM CDT Lab [facility] [address] [address] Lab, [facility] Thyroid cancer (HCC) 04/11/2025 Travel from Last 3 Months Immunizations Immunization Administration Dates Next Due RHO(D) Immune Globulin- IV Or IM 03/22/2016 Family History Medical History Relation Name Comments Thyroid Cancer Mother Relation Name Status Comments Mother Alive Social History Tobacco Use Types Packs/Day Years Used Date Smoking Tobacco: Some Days Cigarettes Smokeless Tobacco: Never Tobacco Cessation:Ready to Q uit: Yes; Counseling Given: Yes Alcohol Use Standard Drinks/Week Comments Yes 1 (1 standard drink = 0.6 oz pur e alcohol) daily Comments Unknown Sex and Gender Information Value Date Recorded Sex Assigned at Not on file Legal Sex Female 12:04 AM CDT Gender Identity Not on file Sexual Orientation Not on file Last Filed Vital Signs Vital Sign Reading Time Taken Comments Blood Pressure 140/88 04/11/2025 8:51 AM CDT Pulse 92 04/11/2025 8:51 AM CDT Temperature 36.7 C (98.1 F) 04/11/2025 8:51 AM CDT Respiratory Rate 20 04/11/2025 8:51 AM CDT Oxygen Saturation 95% 04/11/2025 8:51 AM CDT Inhaled Oxygen Concentration - - Weight 93.2 kg (205 lb 6.4 oz) 04/11/2025 8:51 A M CDT Height 154.9 cm (5' 1) 04/11/2025 8:51 AM CDT Body Mass Index 38.81 04/11/2025 8:51 AM CDT Plan of Treatment Upcoming Encounters Date Type Department Care Team (Late st Contact Info) Description 07/11/2025 3:10 PM SHODER FILLER Lab [facility] [address] [address] Lab, [facility] 07/11/2025 3:15 PM SHODER FILLER Office Visit [facility] [address] [address] Bipin Sequeira, DO [address] [place] [phone] Health Maintenance Due Date Last Done [...] (3 - Moderna risk series) 05/03/2021 04/05/2021, 04/05/2021, 03/08/2021, Additional history exists Cologuard 2021 Colonoscopy 2021 Colorectal Cancer Screening 2021 Immunochemical Fecal Occult Blood 2021 Influenza Immunization (#1) 2025 Respiratory Syncytial Virus (RSV) Immunization (Adult) (1 - 1-dose 75+ series) 2051 Human Papillomavirus (HPV) Immunization Aged Out No longer eligible based on patient's age to complete this topic Meningococcal Immunization (ACWY) Aged Out No longer eligible based on patient's age to complete this topic Rotavirus Immunization Aged Out No lo nger eligible based on patient's age to complete this topic Procedures Procedure Name Priority Date/Time Associated Diagnosis Comments CT CHEST W CONTRAST Routine 04/11/2025 8 :54 AM CDT Thyroid cancer (HCC) CT SOFT TISSUE NECK W CONTRAST Routine 04/11/2025 8:54 AM CDT Thyroid cancer (HCC) CBC WITH AUTO DIFF [place] Routine 04/11/2025 8:26 AM CDT CMP (COMPREHENSIVE METABOLIC PANEL) Routine 04/11/2025 8:26 AM CDT Thyroid cancer (HCC) THYROID STIMULATING HORMONE (TSH) Routine 04/11/2025 8:26 AM CDT Thyroid cancer (HCC) THYROXINE (T4) FREE Routine 04/11/2025 8 :26 AM CDT Thyroid cancer (HCC) from Last 3 Months Results * CT CHEST W CONTRAST (04/11/2025 8:54 AM CDT) Anatomical Region Laterality Modality Chest N/A Computed Tomogra phy Narrative 04/11/2025 8:58 AM CDT EXAMINATION: CT CHEST W CONTRAST 04/11/2025 INDICATIONS: 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 Papillary thyroid carcinoma with pulmonary metastasis. COMPARISON: CT chest 10/26/2024 TECHNIQUE: Following the administration of intravenous contrast, helical imaging was performed through the chest. A dose lowering technique was used for this procedure, which may include, but is not limited to, dose reduction technique(s), automated exposure control techniques, use of iterative reconstruction techniques, and ALARA (as low as reasonably achievable) or ALARA/IMAGE Gently techniques. FINDINGS: Cardiovascular: Thoracic aorta is intact without aneurysmal dilatation. Heart size is probably within normal limits. No significant coronary artery calcification is seen. The pulmonary arterial tree demonstrates no definite filling defect. Pleura: No significant pleural or pericardial effusion is seen. Lymphatics: Less than 1 cm axillary lymph nodes are seen. There is some thickening along the tracheobronchial tree within the heather. No significant mediastinal or hilar adenopathy. Probable small residual thymic tissue within the anterior mediastinum. Lungs: Multiple bilateral pulmonary nodules are present most consistent with metastatic disease. These do not appear significantly changed. There is additional subpleural interstitial and airspace disease within the right middle lobe and paraspinal region of the right lower lobe which are nonspecific but could represent atelectasis or inflammatory process. Upper abdomen: Diffuse hepatic steatosis. Musculoskeletal: Degenerative changes are seen. IMPRESSION 1. Multiple bilateral pulmonary nodules most consistent with metastatic disease probably not significantly changed. 2. Additional interstitial and patchy airspace disease most pronounced within the subpleural regions of the inferior right middle lobe and paraspinal region of the right lower lobe new from previous and could be infectious or inflammatory. Atelectasis also possibility. 3. Upper normal-sized axillary lymph nodes unchanged. No new adenopathy is appreciated. Probable small amount of residual thymic tissue within the anterior mediastinum. 4. Diffuse hepatic steatosis. Electronically signed by: VASILE MONET MD, Staff Radiologist Date of Signature: 04/11/2025 08:58:46 Procedure Note Vasile Monet MD - 04/11/2025 EXAMINATION: CT CHEST W CONTRAST 04/11/2025 INDICATIONS: 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 Papillary thyroidcarcinoma with pulmonary metastasis. COMPARISON: CT chest 10/26/2024 TECHNIQUE: Following the administration of intravenous contrast, helical imaging wasperformed through the chest. A dose lowering technique was used for this procedure, which may include,but is not limited to, dose reduction technique(s), automated exposurecontrol techniques, use of iterative reconstruction techniques, and ALARA(as low as reasonably achievable) or ALARA/IMAGE Gently techniques. FINDINGS: Cardiovascular: Thoracic aorta is intact without aneurysmal dilatation.Heart size is probably within normal limits. No significant coronaryartery calcification is seen. The pulmonary arterial tree demonstrates nodefinite filling defect. Pleura: No significant pleural or pericardial effusion is seen. Lymphatics: Less than 1 cm axillary lymph nodes are seen. There is somethickening along the tracheobronchial tree within the heather. Nosignificant mediastinal or hilar adenopathy. Probable small residualthymic tissue within the anterior mediastinum. Lungs: Multiple bilateral pulmonary nodules are present most consistentwith metastatic disease. These do not appear significantly changed.There is additional subpleural interstitial and airspace disease withinthe right middle lobe and paraspinal region of the right lower lobe whichare nonspecific but could represent atelectasis or inflammatory process. Upper abdomen: Diffuse hepatic steatosis. Musculoskeletal: Degenerative changes are seen. IMPRESSION 1. Multiple bilateral pulmonary nodules most consistent with metastaticdisease probably not significantly changed. 2. Additional interstitial and patchy airspace disease most pronouncedwithin the subpleural regions of the inferior right middle lobe andparaspinal region of the right lower lobe new from previous and could beinfectious or inflammatory. Atelectasis also possibility. 3. Upper normal-sized axillary lymph nodes unchanged. No new adenopathyis appreciated. Probable small amount of residual thymic tissue withinthe anterior mediastinum. 4. Diffuse hepatic steatosis. Electronically signed by: VASILE MONET MD, Staff Radiologist Date of Signature: 04/11/2025 08:58:46 us Bipin Sequeira DO IMG CT ORDERABLES Final Result * CT SOFT TISSUE NECK W CONTRAST (04/11/2025 8:54 AM CDT) Anatomical Region Laterality Modality Spine N/A Computed Tomogra phy Narrative 04/11/2025 9:02 AM CDT EXAMINATION: CT SOFT TISSUE NECK W CONTRAST 04/11/2025 INDICATIONS: Malignant neoplasm of thyroid gland thyroid carcinoma status post thyroidectomy. Metastatic disease COMPARISON: CT neck 10/26/2024 TECHNIQUE: Following contrast administration, helical imaging was performed through the neck. A dose lowering technique was used for this procedure, which may include, but is not limited to, dose reduction technique(s), automated exposure control techniques, use of iterative reconstruction techniques, and ALARA (as low as reasonably achievable) or ALARA/IMAGE Gently techniques. FINDINGS: No mass or abnormal enhancement is seen within the brain parenchyma. Very mild sinus mucosal thickening is seen. Mastoids are clear. The parotid and submandibular glands are unremarkable. Postop changes are seen from thyroidectomy. There is abnormal attenuation within the left thyroid bed which is probably not significantly changed. There is additional borderline sized lymph nodes within the neck bilaterally involving the jugular chains and posterior triangles and extending into the supraclavicular regions. These are probably not significantly changed. Soft tissue fullness of the naso and oropharynx as well as the supraglottic larynx similar to previous. This could be partially related to postradiation change. Mild degenerative changes of the cervical spine. See dedicated CT chest dictated separately. IMPRESSION 1. Postop changes thyroidectomy. There is some abnormal attenuation within the left thyroid bed probably not significantly changed since previous. Follow-up recommended. 2. Borderline sized and mildly enlarged lymph nodes within the neck bilaterally are indeterminate their etiology. These are also probably not significantly changed. Follow-up recommended. 3. See dedicated CT chest dictated separately. Electronically signed by: VASILE MONET MD, Staff Radiologist Date of Signature: 04/11/2025 09:02:55 Procedure Note Vasile Monet MD - 04/11/2025 EXAMINATION: CT SOFT TISSUE NECK W CONTRAST 04/11/2025 INDICATIONS: Malignant neoplasm of thyroid gland thyroid carcinoma status postthyroidectomy. Metastatic disease COMPARISON: CT neck 10/26/2024 TECHNIQUE: Following contrast administration, helical imaging was performed throughthe neck. A dose lowering technique was used for this procedure, which may include,but is not limited to, dose reduction technique(s), automated exposurecontrol techniques, use of iterative reconstruction techniques, and ALARA(as low as reasonably achievable) or ALARA/IMAGE Gently techniques. FINDINGS: No mass or abnormal enhancement is seen within the brain parenchyma. Verymild sinus mucosal thickening is seen. Mastoids are clear. The parotid and submandibular glands are unremarkable. Postop changes are seen from thyroidectomy. There is abnormal attenuationwithin the left thyroid bed which is probably not significantly changed.There is additional borderline sized lymph nodes within the neckbilaterally involving the jugular chains and posterior triangles andextending into the supraclavicular regions. These are probably notsignificantly changed. Soft tissue fullness of the naso and oropharynx aswell as the supraglottic larynx similar to previous. This could bepartially related to postradiation change. Mild degenerative changes of the cervical spine. See dedicated CT chest dictated separately. IMPRESSION 1. Postop changes thyroidectomy. There is some abnormal attenuationwithin the left thyroid bed probably not significantly changed sinceprevious. Follow-up recommended. 2. Borderline sized and mildly enlarged lymph nodes within the neckbilaterally are indeterminate their etiology. These are also probably notsignificantly changed. Follow-up recommended. 3. See dedicated CT chest dictated separately. Electronically signed by: VASILE MONET MD, Staff Radiologist Date of Signature: 04/11/2025 09:02:55 us Bipin Sequeira DO IMG CT ORDERABLES Final Result * (ABNORMAL) CBC WITH AUTO DIFF [place] (04/11/2025 8:26 AM CDT) WBC 6.6 4.0 - 10.0 10*3/uL [facility] HGB 14.4 11.2 - 15.7 g/dL [facility] HCT 43.9 34.1 - 44.9 % [facility] PLT 209 163 - 369 10*3/uL [facility] MPV 10.8 9.4 - 12.4 fL [facility] RBC 4.54 3.93 - 5.22 10*6/uL [facility] MCV 97(H) 79 - 95 fL [facility] MCH 31.7 25.6 - 32.2 pg [facility] MCHC 32.8 32.2 - 36.5 g/dL [facility] RDW 12.6 11.6 - 14.4 % [facility] Neutrophils % 55.4 36.0 - 66.0 % [facility] Lymphocytes % 28.6 19.0 - 40.0 % [facility] Monocytes % 7.5 4.1 - 12.1 % [facility] Eosinophils % 7.4(H) 0.0 - 3.5 % [facility] Basophils % 0.8 0.0 - 1.0 % [facility] Absolute Neutrophils 3.7 1.4 - 6.6 10*3/uL [facility] Absolute Lymphocytes 1.9 0.8 - 4.0 10*3/uL [facility] Absolute Monocytes 0.5 0.2 - 1.2 10*3/uL [facility] Absolute Eosinophils 0.5(H) 0.0 - 0.4 10*3/uL [facility] Absolute Basophils 0.1 0.0 - 0.1 10*3/uL [facility] 04/11/2025 8:26 AM CDT us Bipin Sequeira DO LAB SEND OUTS Final Result [facility] [address] [place] [address], [place] [phone] * THYROXINE (T4) FREE (04/11/2025 8:26 AM CDT) THYROXINE (T4), FREE, 0.64 0.61 - 1.12 ng/dL [facility] Comment: Specimens that contain high levels of Biotin >10 ng/mL may cause false high results for this method. Interpret results in light of the total clinical presentation of the patient. To minimize the interference of high levels of Biotin, it is recommended that patients discontinue taking Biotin 72 hours prior to testing. Blood 04/11/2025 8:26 AM CDT [facility] - 04/11/2025 3:58 PM CDT Is the patient taking Biotin supplement? No Release to patient->Immediate us Bipin Sequeira DO CHEMISTRY ORDERABLES Final Res ult Performing Organization Address City/[facility]/ZIP Co de Phone Number [facility] [address] [place] [address], [place] [phone] * (ABNORMAL) THYROID STIMULATING HORMONE (TSH) (04/11/2025 8:26 AM CDT) TSH 9.98(H) 0.45 - 5.33 uIU/mL [facility] Blood 04/11/2025 8:26 AM CDT [facility] - 04/11/2025 3:58 PM CDT Release to patient->Immediate us Bipin Sequeira DO CHEMISTRY ORDERABLES Final Res ult [facility] [address] [place] [address], [place] [phone] * (ABNORMAL) CMP (COMPREHENSIVE METABOLIC PANEL) (04/11/2025 8:26 AM CDT) Glucose 107(H) 70 - 105 mg/dL [facility] Blood Urea Nitrogen 14 7 - 25 mg/dL [facility] Creatinine 0.8 0.6 - 1.2 mg/dL [facility] Sodium 141 136 - 145 mEq/L [facility] Potassium 4.2 3.5 - 5.1 mEq/L [facility] Chloride 104 98 - 107 mEq/L [facility] Bicarbonate 28 21 - 31 mEq/L [facility] Total Bilirubin 0.5 0.3 - 1.0 mg/dL [facility] Alk. Phosphatase 54 34 - 104 U/L [facility] Aspartate Aminotransferase 26 13 - 39 U/L [facility] Alanine Aminotransferase 30 7 - 52 U/L [facility] Total Protein 7.4 6.4 - 8.9 g/dL [facility] Albumin 4.6 3.5 - 5.7 g/dL [facility] Calcium 9.6 8.6 - 10.3 mg/dL [facility] Anion Gap 13.2 7.0 - 15.0 mEq/L [facility] Globulin 2.8 2.0 - 3.5 g/dL [facility] EGFR 90 >60 ml/min/1. 73m2 [facility] Comment: This eGFR is calculated using 2020 CKD-EPI Creatinine equation without race modifier based on the NKF-ASN task force recommendations Equation: eNJI=845*min(SCr/k,1)a*max(SCr/k,1)-1.200*0.9938Age*1.012 (if female), where SCr is serum creatinine, k is 0.7 for females and 0.9 for males, and a is -0.241 for females and -0.302 for males Blood 04/11/2025 8:26 AM CDT Narrative [facility] - 04/11/2025 9:17 AM CDT Release to patient->Immediate IS THE PATIENT REQUIRED TO BE FASTING FOR 8 HOURS?->No us Bipin Sequeira DO CHEMISTRY ORDERABLES Final Res ult [facility] [address] [place] [address], from Last 3 Months Insurance MEDICAID [employer] Care Teams Jewel Hole Finish Opener Relationship Specialty Start Date End Date Bipin Sequeira DO [address] [place] [phone] PCP - General Oncology 11/21/22
--- OUTSIDE RECORDS SUMMARY | 2025-05-25 16:47 | XMS_ITS | Encounter Summary ---
Author Organization [facility] Address [address] [place] [address] Phone Care Team Providers Care Wire Spooler Name Role Phone Bipin Sequeira DO Primary Care Provider [phone] Reason for Visit * Reason Comments Medication Refill Encounter Details Date Type Department Care Team (Late st Contact Info) Description 08/18/2024 Refill [facility] [address] [id number] Bipin Sequeira DO [address] [place] [phone] Medication Refill Social History Tobacco Use [...] st Contact Info) Description 07/11/2025 3:10 PM FINANCIAL SERVICES INTERN Lab [facility] [address] [address] Lab, [facility] 07/11/2025 3:15 PM FINANCIAL SERVICES INTERN Office Visit [facility] [address] [phone] Bipin Sequeira DO [address] [place] [address] documented as of this encounter Visit Diagnoses Not on filedocumented in this encounter Care Teams Wire Spooler Relationship Specialty Start Date End Date Bipin Sequeira DO [address] [place] [address] PCP - General Oncology 11/21/22 documented as of this encounter
--- OUTSIDE RECORDS SUMMARY | 2025-05-25 16:47 | XMS_ITS ---
Author Organization [facility] [address] [facility] Address [address] [place] [address] Care Team Providers Care Manager Enterprise Name Role Phone Kareem Davidson MD Primary Care Provider Vikram Yee MD Unavailable [phone] Bipin Sequeira DO Unavailable [phone] Charisse Herrmann MD Unavailable [phone] Active Problems Problem Noted Date Diagnosed [...]
--- OUTSIDE RECORDS SUMMARY | 2025-05-25 16:47 | XMS_ITS | Clinical Summary ---
Author Organization [facility] Marcy perez [facility] Address [address] [place] [address] Care Team Providers Care Automobile Damage Appraiser Name Role Phone Lesvia Aguirre ZARI Primary Care Provider [phone] Allergies No known active allergies Medications ciprofloxacin HCl (CIPRO) 500 mg tablet TAKE 1 TABLET BY MOUTH EVERY 12 HOURS FOR 7 DAYS 06/15/2020 Active Euthyrox 175 mcg tabletIndication s:Thyroid cancer (CMS/HCC) Take 1 Tablet (175 mcg) by mouth daily. 90 Tablet 3 09/06/2020 Active Active Problems Problem Noted Date Diagnosed Date Thyroid cancer 06/18/2020 Family History Medical History Relation Name Comments [...] on file Legal Sex Female 10:24 AM MEDICAL DOCTOR Gender Identity Not on file Sexual Orientation Not on file Last Filed Vital Signs Vital Sign Reading Time Taken Comments Blood Pressure 112/79 07/02/2020 1:34 PM MEDICAL DOCTOR Pulse 104 07/02/2020 1:34 PM MEDICAL DOCTOR Temperature 37.3 C (99.1 F) 07/02/2020 1:34 PM MEDICAL DOCTOR Respiratory Rate - - Oxygen Saturation 98% 07/02/2020 1:34 PM MEDICAL DOCTOR Inhaled Oxygen Concentration - - Weight 83.9 kg (185 lb) 08/14/2020 1:06 PM MEDICAL DOCTOR Height 154.9 cm (5' 1) 08/14/2020 1:06 PM MEDICAL DOCTOR Body Mass Index 34.96 08/14/2020 1:06 PM MEDICAL DOCTOR Plan of Treatment Health Maintenance Due Date Last Done Comments DTAP/TDAP/TD VACCINES (1 - Tdap) 1995 HEPATITIS B VACCINES (1 of 3 - 19+ 3-dose series) 03/1995 BREAST CANCER SCREENING 2016 COLORECTAL SCREENING 2021 Colorectal Cancer Screening 2021 FIT-DNA Q 3 years 2021 FIT/FOBT Q 1 year 2021 Flex Sig/CT Colonography Q 5 years 2021 INFLUENZA VACCINE (#1) 2025 Insurance Care Teams Automobile Damage Appraiser Relationship Specialty Start Date End Date Lesvia Aguirre FNP [address] [place] [address] [address] [place] [address] PCP - General Nurse Practitioner Family 06/18/20
[2025-05-25 18:03] LABS: Free T4 Free Thyroxine 1.66 ng/dL (0.78-2.19)
[2025-05-25 18:41] LABS: Thyroid Stimulating Hormone 0.047 uIU/mL (0.465-4.680)
== END 2025-05-25 16:19 | disposition home or self-care (01) ==
LOC: ANHLAB 16:24
PROVIDERS: PCP Family Medicine; Visit Provider Internal Medicine Medical Oncology
DX: C73 Malignant neoplasm of thyroid gland (principal)
CPT/HCPCS: 36415; 84439; 84443